=== PATIENT | male | born 1960 | race Caucasian/White ===

== ENCOUNTER 2017-01-10 08:24 | Emergency (ER) | payer SELFPAY ==
[2017-01-10 08:40] VITALS: TEMP 96.4
[2017-01-10] MEDS ORDERED: predniSONE 20 MG TAB PO ONE (08:44)
[2017-01-10] MEDS ORDERED: methylPREDNISolone SODIUM SUC 125 MG/2 ML VIAL IM ONE (08:44)
--- NOTE | 2017-01-10 08:48 | ED.PDOC ---
History of Present Illness - General Chief Complaint: Allergic Reaction Stated Complaint: facial swelling Time Seen by Provider: 01/10/17 08:33 Source: patient, family Exam Limitations: no limitations - History of Present Illness Initial Comments: the patient is a 56-year-old male presenting to the emergency room secondary to rash to his left upper extremity and left side of his face starting approximately 5 days ago after he was digging around in the yard. He reports that some dirt splashed up on his face and his arm and since then he has had itching along with erythema and swelling. He has had some small weeping lesions as well in that distribution. They do itch. No difficulty with breathing. No obvious abscess. Severity: moderate Improving Factors: nothing Worsening Factors: nothing Associated Symptoms: denies symptoms Allergies/Adverse Reactions: Allergies Erythromycin Allergy (Verified 01/10/17 08:39) Home Medications: Ambulatory Orders Amlodipine Besylate 5 mg PO DAILY 01/10/17 HYDROcodone 10MG/APAP 325MG [[place] 10/325] 1 ea PO PRN 01/10/17 Lisinopril 20 mg PO BID 01/10/17 Sulfamethoxazole-Trimethoprim [Bactrim Ds 800-160 mg] 1 tab PO DAILY #3 tab predniSONE [Prednisone] 20 mg PO DAILY #5 tab 01/10/17 Review of Systems - Review of Systems Constitutional: States: no symptoms reported EENTM: States: no symptoms reported Respiratory: States: no symptoms reported Cardiology: States: no symptoms reported Gastrointestinal/Abdominal: States: no symptoms reported Genitourinary: States: no symptoms reported Musculoskeletal: States: no symptoms reported Skin: States: see HPI Neurological: States: no symptoms reported Endocrine: States: no symptoms reported All other Systems: No Change from Baseline Past Medical History (General) - Patient Medical History Hx Seizures: No Hx Stroke: No Hx Dementia: No Hx Asthma: No Hx of COPD: Yes Hx Cardiac Disorders: No Hx Congestive Heart Failure: No Hx Pacemaker: No Hx Hypertension: Yes Hx Thyroid Disease: No Hx Diabetes: Yes Hx Renal Disease: No Hx Cancer: No Hx of HIV: No Hx Hepatitis C: No Hx MRSA: No Surgical History: cholecystectomy - Vaccination History Hx Tetanus, Diphtheria Vaccination: Yes Hx Influenza Vaccination: No Hx Pneumococcal Vaccination: No - Social History Hx Tobacco Use: Yes Hx Alcohol Use: Yes Hx Substance Use: No Hx Substance Use Treatment: No Hx Depression: Yes Hx Physical Abuse: No Hx Emotional Abuse: No Hx Suspected Abuse: No - Activities of Daily Living Hospice Agency (if applicable):: None - Female History Patient is a Female of Child Bearing Age (10 -59 yrs old): No Patient : No Family Medical History - Family History Mother Living Status: Cause of : COPD/Emphysema Hx Cardiac Disease: Yes Hx Family Diabetes: Yes Father Living Status: Cause of : prosatae cancer Hx Family Cancer: Yes - Prostate Physical Exam - Physical Exam General Appearance: Alert, Comfortable, No apparent distress Eye Exam: bilateral normal Ears, Nose, Throat: hearing grossly normal, normal ENT inspection, normal pharynx Neck: non-tender, full range of motion, supple Respiratory: chest non-tender, lungs clear, normal breath sounds, no respiratory distress, no accessory muscle use Cardiovascular/Chest: normal peripheral pulses, regular rate, rhythm, no edema Peripheral Pulses: radial,right: 2+, radial,left: 2+, dorsalis pedis,right: 2+, dorsalis pedis,left: 2+ Gastrointestinal/Abdominal: non tender Rectal Exam: deferred Back Exam: normal inspection Extremity: normal range of motion, no pedal edema, no calf tenderness, normal capillary refill Neurologic: alert, normal mood/affect, oriented x 3 Skin Exam: other - erythema to the left upper extremity and left side of the face with small excoriated areas that appear to have been weeping at some point. Possibly may have been some small blisters in the area that have broken. No blisters currently. He does have a small amount of periorbital edema. Extraocular movements are preserved. Comments: Vital Signs - 24 hr 01/10/17 08:30 Temperature 96.4 F L Pulse Rate [ 84 pulse ox] Respiratory 20 Rate Blood Pressure 151/96 [pulse ox] O2 Sat by Pulse 97 Oximetry Progress - Progress Progress: 01/10/17 08:50 the patient is a 56-year-old male presenting due to an allergic reaction to an unknown stimulus in the form of a contact dermatitis. It is possibly poison oak or poison pradeep. Exposure was 5 days ago. I do not believe that there is any superimposed infection at this time however we will place the patient on Bactrim daily for 3 days to make sure he does not develop one. He has received a dose of steroids here today and will be placed on prednisone daily for the next 5 days at 20 mg. He needs to follow-up with his primary care doctor before the weekend. ER warnings were given for any acute worsening. He can continue to take Zyrtec 10 mg twice daily for the next few days as well. family has taken pictures for comparison for evaluation of treatment efficacy. No evidence of airway involvement at this time. Departure - Departure Clinical Impression: Contact dermatitis and eczema due to plant Condition: Fair Departure Forms: ED Discharge - Pt. Copy, Patient Portal Self Enrollment Instructions: DI for Contact Dermatitis Diet: regular diet Activity: increase activity as tolerated Referrals: Mathieu Mehta MD [Primary Care Provider] - 1-5 Days Prescriptions: Sulfamethoxazole-Trimethoprim [Bactrim Ds 800-160 mg] 1 tab PO DAILY #3 tab predniSONE [Prednisone] 20 mg PO DAILY #5 tab Home Medications: Ambulatory Orders Amlodipine Besylate 5 mg PO DAILY 01/10/17 HYDROcodone 10MG/APAP 325MG [[place] 10/325] 1 ea PO PRN 01/10/17 Lisinopril 20 mg PO BID 01/10/17 Sulfamethoxazole-Trimethoprim [Bactrim Ds 800-160 mg] 1 tab PO DAILY #3 tab predniSONE [Prednisone] 20 mg PO DAILY #5 tab 01/10/17 Comments: the patient is a 56-year-old male presenting due to an allergic reaction to an unknown stimulus in the form of a contact dermatitis. It is possibly poison oak or poison pradeep. Exposure was 5 days ago. I do not believe that there is any superimposed infection at this time however we will place the patient on Bactrim daily for 3 days to make sure he does not develop one. He has received a dose of steroids here today and will be placed on prednisone daily for the next 5 days at 20 mg. He needs to follow-up with his primary care doctor before the weekend. ER warnings were given for any acute worsening. He can continue to take Zyrtec 10 mg twice daily for the next few days as well. family has taken pictures for comparison for evaluation of treatment efficacy. No evidence of airway involvement at this time.
[2017-01-10 09:48] VITALS: BP 135/88; O2SAT 98
== END 2017-01-10 09:47 | disposition home or self-care (01) ==
LOC: ER 08:24
DX: L23.7 Allergic contact dermatitis due to plants, except food (principal); J44.9 Chronic obstructive pulmonary disease, unspecified; I10 Essential (primary) hypertension; E11.9 Type 2 diabetes mellitus without complications; Z88.3 Allergy status to other anti-infective agents; Z79.899 Other long term (current) drug therapy; Z87.891 Personal history of nicotine dependence
CPT/HCPCS: J2930; J7512

== ENCOUNTER 2017-01-15 09:22 | Emergency (ER) | payer SELFPAY ==
[2017-01-15 10:04] VITALS: TEMP 97.9
[2017-01-15 10:11] VITALS: BP 117/65; O2SAT 98
--- NOTE | 2017-01-15 10:44 | ED.PDOC ---
History of Present Illness - General Chief Complaint: Skin/Abrasion/Tear Time Seen by Provider: 01/15/17 09:29 Source: patient Exam Limitations: no limitations - History of Present Illness Initial Comments: the patient is a 56-year-old male with no recent travel history presenting to the emergency room for the second time in the last week secondary to a pruritic rash with excoriations to the left upper extremity as well as a few lesions to the face, the right upper extremity as well as a few lesions to the abdomen and perineum. These lesions are extremely pruritic. Further information gain since his last visit was that he was working around was a form of sumac and from the description and an Internet search it appears that this form of sumac was likely poisonous form giving a reaction consistent with poison pradeep or poison oak. The patient actually did not finish his course of prednisone as he was afraid that it was causing a rash. Since stopping the prednisone the itching has become more significant. He has been putting calamine lotion on it. The swelling seen in the face of the last visit has resolved however. He hasn't does not have any oral lesions not having any respiratory issues. There are no blisters or Desquamation. Timing/Duration: 1 week Severity: moderate Improving Factors: medication Worsening Factors: nothing Associated Symptoms: denies symptoms Allergies/Adverse Reactions: Allergies Erythromycin Allergy (Verified 01/15/17 10:01) Home Medications: Ambulatory Orders Amlodipine Besylate 5 mg PO DAILY 01/10/17 HYDROcodone 10MG/APAP 325MG [[place] 10/325] 1 ea PO PRN 01/10/17 Lisinopril 20 mg PO BID 01/10/17 Hydroxyzine HCl 25 mg PO Q4H PRN #30 tab 01/15/17 glipiZIDE [Glucotrol] 5 mg PO DAILY #20 tab 01/15/17 predniSONE [Prednisone] 20 mg PO DAILY #5 tab 01/15/17 Review of Systems - Review of Systems Constitutional: States: no symptoms reported EENTM: States: no symptoms reported Respiratory: States: no symptoms reported Cardiology: States: no symptoms reported Gastrointestinal/Abdominal: States: no symptoms reported Genitourinary: States: no symptoms reported Musculoskeletal: States: no symptoms reported Skin: States: see HPI Neurological: States: no symptoms reported Endocrine: States: no symptoms reported All other Systems: No Change from Baseline Past Medical History (General) - Patient Medical History Hx Seizures: No Hx Stroke: No Hx Dementia: No Hx Asthma: No Hx of COPD: Yes Hx Cardiac Disorders: No Hx Congestive Heart Failure: No Hx Pacemaker: No Hx Hypertension: Yes Hx Thyroid Disease: No Hx Diabetes: No Hx Renal Disease: No Hx Cancer: No Hx of HIV: No Hx Hepatitis C: No Hx MRSA: No - Vaccination History Hx Tetanus, Diphtheria Vaccination: Yes Hx Influenza Vaccination: No Hx Pneumococcal Vaccination: No - Social History Hx Tobacco Use: Yes Hx Alcohol Use: Yes Hx Substance Use: No Hx Substance Use Treatment: No Hx Depression: Yes Hx Physical Abuse: No Hx Emotional Abuse: No Hx Suspected Abuse: No - Female History Patient : No Family Medical History - Family History Mother Living Status: Cause of : COPD/Emphysema Hx Cardiac Disease: Yes Hx Family Diabetes: Yes Father Living Status: Cause of : prosatate cancer Hx Family Cancer: Yes - Prostate Physical Exam - Physical Exam General Appearance: Alert, Comfortable, No apparent distress Eye Exam: bilateral normal Ears, Nose, Throat: normal ENT inspection, normal pharynx Neck: full range of motion, supple, normal inspection Respiratory: chest non-tender, lungs clear, normal breath sounds, no respiratory distress, no accessory muscle use Cardiovascular/Chest: normal peripheral pulses, regular rate, rhythm, no edema Peripheral Pulses: radial,right: 2+, radial,left: 2+ Gastrointestinal/Abdominal: non tender, soft Rectal Exam: deferred Back Exam: normal inspection - with the exception of a few skin lesions Extremity: normal range of motion, non-tender, normal inspection, no pedal edema , normal capillary refill Neurologic: alert, normal mood/affect, oriented x 3 Skin Exam: normal color - with the exception of the skin lesions as described above. Lymphatic: no adenopathy Comments: Vital Signs - 24 hr 01/15/17 01/15/17 09:53 10:10 Temperature 97.9 F Pulse Rate [ 94 H 67 Right Radial] Respiratory 20 18 Rate Blood Pressure 138/102 117/65 [Right Arm] O2 Sat by Pulse 97 98 Oximetry Progress - Progress Progress: 01/15/17 10:46 the patient is a 56-year-old male presenting to the emergency room secondary to persistent rash to the extremities, torso, face and perineum. This is consistent with contact dermatitis cause from sumac. The patient can apply a thin layer of Aquaphor to all affected areas 2-3 times daily to help reduce irritation. He will also be placed back on prednisone for the next 5 days. He will be written for hydroxyzine for the itching. Blood sugars are elevated today even though he has been off of the prednisone for a few days. I' m going to start the patient on low-dose glipizide in the morning. He needs to follow-up with his primary care doctor for formal evaluation of his hyperglycemia. Certainly the steroid is not going to help his blood sugars in the short-term however it is quite necessary for control of symptoms at this time. He needs to follow up with his primary care doctor early next week. Return to the emergency room for any acute worsening. 01/15/17 10:49 - Results/Orders Results/Orders: Laboratory Tests 01/15/17 09:59 WBC 7.1 RBC 5.90 Hgb 17.3 Hct 50.6 MCV 85.8 MCH 29.3 MCHC 34.2 RDW 13.6 Plt Count 195 MPV 8.2 Absolute Neuts (auto) 3.60 Absolute Lymphs (auto) 2.10 Absolute Monos (auto) 0.60 Absolute Eos (auto) 0.60 H Absolute Basos (auto) 0.10 Neutrophils % 51.3 Lymphocytes % 30.3 Monocytes % 9.1 H Eosinophils % 8.5 H Basophils % 0.8 Sodium 133 L Potassium 4.6 Chloride 98 L Carbon Dioxide 25 Anion Gap 14.6 BUN 23 H Creatinine 0.87 BUN/Creatinine Ratio 26.4 H Random Glucose 309 H Serum Osmolality 281.8 Calcium 9.6 Total Bilirubin 1.0 AST 24 ALT 38 Alkaline Phosphatase 49 LD Total 124 Serum Total Protein 7.7 Albumin 4.6 Globulin 3.1 Albumin/Globulin Ratio 1.5 Departure - Departure Clinical Impression: Allergic dermatitis due to poison sumac, Hyperglycemia Disposition: Discharge to Home or Self Care Condition: Fair Departure Forms: ED Discharge - Pt. Copy, Patient Portal Self Enrollment Instructions: DI for Contact Dermatitis Diet: diabetic diet Activity: increase activity as tolerated Referrals: Mathieu Mehta MD [Primary Care Provider] - 1-2 Weeks Prescriptions: glipiZIDE [Glucotrol] 5 mg PO DAILY #20 tab Hydroxyzine HCl 25 mg PO Q4H PRN #30 tab PRN Reason: Allergies predniSONE [Prednisone] 20 mg PO DAILY #5 tab Home Medications: Ambulatory Orders Amlodipine Besylate 5 mg PO DAILY 01/10/17 HYDROcodone 10MG/APAP 325MG [[place] 10325] 1 ea PO PRN 01/10/17 Lisinopril 20 mg PO BID 01/10/17 Hydroxyzine HCl 25 mg PO Q4H PRN #30 tab 01/15/17 glipiZIDE [Glucotrol] 5 mg PO DAILY #20 tab 01/15/17 predniSONE [Prednisone] 20 mg PO DAILY #5 tab 01/15/17 Additional Instructions: the patient is a 56-year-old male presenting to the emergency room secondary to persistent rash to the extremities, torso, face and perineum. This is consistent with contact dermatitis cause from sumac. The patient can apply a thin layer of Aquaphor to all affected areas 2-3 times daily to help reduce irritation. He will also be placed back on prednisone for the next 5 days. He will be written for hydroxyzine for the itching. Blood sugars are elevated today even though he has been off of the prednisone for a few days. I' m going to start the patient on low-dose glipizide in the morning. He needs to follow-up with his primary care doctor for formal evaluation of his hyperglycemia. Certainly the steroid is not going to help his blood sugars in the short-term however it is quite necessary for control of symptoms at this time. He needs to follow up with his primary care doctor early next week. Return to the emergency room for any acute worsening.
== END 2017-01-15 10:57 | disposition home or self-care (01) ==
LOC: ER 09:22
DX: L23.7 Allergic contact dermatitis due to plants, except food (principal); J44.9 Chronic obstructive pulmonary disease, unspecified; I10 Essential (primary) hypertension; Z79.899 Other long term (current) drug therapy; Z88.3 Allergy status to other anti-infective agents

== ENCOUNTER 2017-01-18 10:25 | Emergency (ER) | payer SELFPAY ==
[2017-01-18 10:44] VITALS: TEMP 98.3
[2017-01-18] MEDS ORDERED: ONDANSETRON ODT 8 MG TAB SL ONE (11:19)
--- NOTE | 2017-01-18 11:22 | ED.PDOC ---
History of Present Illness - General Chief Complaint: Diabetic Complaint Stated Complaint: nausea, increased glucose Time Seen by Provider: 01/18/17 11:18 Source: patient, family Exam Limitations: no limitations - History of Present Illness Initial Comments: PT REPORTS NAUSEA, GENERALIZED MALAISE, AND ELEVATED BLOOD GLUCOSE FOR THE PAST SEVERAL DAYS SINCE BEING PLACED ON STEROIDS FOR A RASH THAT WAS PRESUMED TO BE CAUSED BY POISON [place]AK. PT REPORTS RELATIVE WORSENING OF THE RASH AND STATES THAT IT SEEMS TO BE SPREADING ALL OVER HIS BODY. Timing/Duration: 1 week, getting worse Improving Factors: other - HOT SHOWERS Worsening Factors: other - ITCHING FROM RASH IS WORSE AT NIGHT Associated Symptoms: loss of appetite, malaise, nausea/vomiting Allergies/Adverse Reactions: Allergies Erythromycin Allergy (Verified 01/18/17 10:50) Home Medications: Ambulatory Orders Amlodipine Besylate 5 mg PO DAILY 01/10/17 HYDROcodone 10MG/APAP 325MG [[place] 10/325] 1 ea PO PRN 01/10/17 Lisinopril 20 mg PO BID 01/10/17 Hydroxyzine HCl 25 mg PO Q4H PRN #30 tab 01/15/17 glipiZIDE [Glucotrol] 5 mg PO DAILY #20 tab 01/15/17 predniSONE [Prednisone] 20 mg PO DAILY #5 tab 01/15/17 Mometasone Furoate 0.1 % TOP BID #90 lauro 01/18/17 Ondansetron [Zofran Odt] 8 mg PO TID PRN #15 tab 01/18/17 Permethrin [Elimite] 1 applic TOP ONCE #60 cre 01/18/17 Review of Systems - Review of Systems Constitutional: States: malaise, weakness. Denies: fever EENTM: Denies: blurred vision, nose congestion, throat swelling Respiratory: Denies: cough, short of breath Cardiology: Denies: chest pain, palpitations Gastrointestinal/Abdominal: States: diarrhea, nausea. Denies: abdominal pain Skin: States: see HPI, lesions, rash Neurological: Denies: no symptoms reported Endocrine: States: no symptoms reported Past Medical History (General) - Patient Medical History Hx Seizures: No Hx Stroke: No Hx Dementia: No Hx Asthma: No Hx of COPD: Yes Hx Cardiac Disorders: No Hx Congestive Heart Failure: No Hx Pacemaker: No Hx Hypertension: Yes Hx Thyroid Disease: No Hx Diabetes: Yes Hx Renal Disease: No Hx Cancer: No Hx of HIV: No Hx Hepatitis C: No Hx MRSA: No - Vaccination History Hx Tetanus, Diphtheria Vaccination: Yes Hx Influenza Vaccination: No Hx Pneumococcal Vaccination: No - Social History Hx Tobacco Use: Yes Hx Alcohol Use: Yes Hx Substance Use: No Hx Substance Use Treatment: No Hx Depression: Yes Hx Physical Abuse: No Hx Emotional Abuse: No Hx Suspected Abuse: No - Activities of Daily Living Hospice Agency (if applicable):: None - Female History Patient is a Female of Child Bearing Age (10 -59 yrs old): No Patient : No Family Medical History - Family History Mother Living Status: Cause of : COPD/Emphysema Hx Cardiac Disease: Yes Hx Family Diabetes: Yes Father Living Status: Cause of : prosatate cancer Hx Family Cancer: Yes - Prostate Physical Exam - Physical Exam General Appearance: Alert, Obvious distress Eye Exam: bilateral normal Ears, Nose, Throat: hearing grossly normal, normal ENT inspection Neck: non-tender, full range of motion Respiratory: chest non-tender, lungs clear, normal breath sounds Cardiovascular/Chest: regular rate, rhythm, no murmur Gastrointestinal/Abdominal: non tender, soft Back Exam: normal inspection Extremity: non-tender, normal inspection Neurologic: alert, normal mood/affect, oriented x 3 Skin Exam: normal color, warm/dry, rash - MULTIPLE ERTHEMATOUS PAPULAR LESIONS, SOME IN A LINEAR FORMATION, WITH OVERLYING EXCORIATED SKIN. RASH IS LOCATED ON BILATERAL ARMS, ABDOMEN, BILATERAL GROIN AND IN WEB SPACES BETWEEN FINGERS. Progress - Progress Progress: 01/18/17 11:27 56 YEAR OLD MALE WHO PRESENTS TO ED FOR THE 3RD TIME FOR SYMPTOMS SECONDARY TO RASH THAT WAS PRESUMED TO BE CAUSED BY POISON [place]. I WILL TREAT PT FOR SCABIES SINCE THIS RASH DOES EXHIBIT SOME OF THE CHARACTERISTIC FINDINGS FOR SCABIES. WILL RECOMMEND 1000MG METFORMIN BID FOR ELEVATED BLOOD GLUCOSE. RECOMMEND FOLLOW UP WITH DR. HARRISON FOR MONITORING OF BLOOD GLUCOSE LEVELS. - Results/Orders Results/Orders: 01/18/17 11:18 FSBS [GLUCOSE, FINGER STICK] Stat Departure - Departure Clinical Impression: Hyperglycemia, Scabies infestation, Nausea, Diarrhea, Medication side effects Disposition: Discharge to Home or Self Care Condition: Fair Departure Forms: ED Discharge - Pt. Copy, Patient Portal Self Enrollment Instructions: DI for Scabies, Glyburide and Metformin, Permethrin Topical Diet: diabetic diet Prescriptions: Permethrin [Elimite] 1 applic TOP ONCE #60 cre Mometasone Furoate 0.1 % TOP BID #90 lauro Ondansetron [Zofran Odt] 8 mg PO TID PRN #15 tab PRN Reason: Nausea/Vomiting Home Medications: Ambulatory Orders Amlodipine Besylate 5 mg PO DAILY 01/10/17 HYDROcodone 10MG/APAP 325MG [[place] 10/325] 1 ea PO PRN 01/10/17 Lisinopril 20 mg PO BID 01/10/17 Hydroxyzine HCl 25 mg PO Q4H PRN #30 tab 01/15/17 glipiZIDE [Glucotrol] 5 mg PO DAILY #20 tab 01/15/17 predniSONE [Prednisone] 20 mg PO DAILY #5 tab 01/15/17 Mometasone Furoate 0.1 % TOP BID #90 lauro 01/18/17 Ondansetron [Zofran Odt] 8 mg PO TID PRN #15 tab 01/18/17 Permethrin [Elimite] 1 applic TOP ONCE #60 cre 01/18/17
[2017-01-18 12:18] VITALS: BP 131/71; O2SAT 96
== END 2017-01-18 12:15 | disposition home or self-care (01) ==
LOC: ER 10:25
DX: E11.65 Type 2 diabetes mellitus with hyperglycemia (principal); B86 Scabies; R11.0 Nausea; R19.7 Diarrhea, unspecified; T50.905A Adverse effect of unspecified drugs, medicaments and biological substances, initial encounter; J44.9 Chronic obstructive pulmonary disease, unspecified; I10 Essential (primary) hypertension; Z88.3 Allergy status to other anti-infective agents; Z79.899 Other long term (current) drug therapy

== ENCOUNTER 2017-06-13 19:52 | Emergency (ER) | payer SELFPAY ==
[2017-06-13 20:05] VITALS: TEMP 97.9
[2017-06-13] MEDS ORDERED: NITROGLYCERIN 0.4 MG 25 EA TAB SL ONE (20:11)
[2017-06-13] MEDS ORDERED: ASPIRIN (CHEWABLE) 81 MG TAB PO ONE (20:11)
--- NOTE | 2017-06-13 20:15 | ED.PDOC ---
History of Present Illness - General Chief Complaint: Respiratory Problem Stated Complaint: shortness of breath, weakness Time Seen by Provider: 06/13/17 20:10 Source: patient, RN notes reviewed, Vital Signs reviewed Exam Limitations: no limitations - History of Present Illness Initial Comments: Patient comes in via private vehicle with c/o shortness of breath all day. + chest pain, burning in nature and on the L side of his chest. + Nausea. + back pain. ? diaphoresis as he was working outside all day. He has not been taking his BP medications like he should. Only taking Lisinopril prn and has been out of his Amlodipine. He has been having issues with SOB over the past several weeks. He took an Albuterol treatment today w/o improvement and says it made him feel like he was going to pass out. Took Hydrocodone for his back pain w/o improvement. Timing/Duration: 7-24 hours Severity: severe Activities at Onset: activity Possible Cause: frequent episodes - More ffrequent recently Improving Factors: nothing Worsening Factors: nothing Associated Symptoms: chest pain, pain - back pain, wheezing Respiratory Risk Factors: no cause identified Allergies/Adverse Reactions: Allergies Erythromycin Allergy (Verified 01/18/17 10:50) Home Medications: Ambulatory Orders Amlodipine Besylate 5 mg PO DAILY 01/10/17 HYDROcodone 10MG/APAP 325MG [[place] 10/325] 1 ea PO PRN 01/10/17 Lisinopril 20 mg PO BID 01/10/17 predniSONE [Prednisone] 20 mg PO DAILY #5 tab 01/15/17 Amlodipine Besylate 5 mg PO DAILY #30 tab 06/13/17 Metformin HCl 06/13/17 Review of Systems - Review of Systems Constitutional: States: malaise, weakness. Denies: chills, fever EENTM: States: no symptoms reported Respiratory: States: see HPI, short of breath, wheezing. Denies: cough Cardiology: States: chest pain. Denies: edema, palpitations, syncope Gastrointestinal/Abdominal: States: nausea. Denies: abdominal pain, diarrhea, vomiting Musculoskeletal: States: back pain Skin: States: no symptoms reported Neurological: States: no symptoms reported All other Systems: No Change from Baseline Past Medical History (General) - Patient Medical History Hx Seizures: No Hx Stroke: No Hx Dementia: No Hx Asthma: No Hx of COPD: Yes Hx Cardiac Disorders: No Hx Congestive Heart Failure: No Hx Pacemaker: No Hx Hypertension: Yes Hx Thyroid Disease: No Hx Diabetes: Yes Hx Renal Disease: No Hx Cancer: No Hx of HIV: No Hx Hepatitis C: No Hx MRSA: No Surgical History: cholecystectomy - Vaccination History Hx Tetanus, Diphtheria Vaccination: Yes Hx Influenza Vaccination: No Hx Pneumococcal Vaccination: No - Social History Hx Tobacco Use: Yes Hx Alcohol Use: Yes Hx Substance Use: No Hx Substance Use Treatment: No Hx Depression: Yes Hx Physical Abuse: No Hx Emotional Abuse: No Hx Suspected Abuse: No - Female History Patient : No - Triage Comment ED Triage Comment: Elevated blood pressure at home, been out of amlodipine. Took other BP med Family Medical History - Family History Mother Living Status: Cause of : COPD/Emphysema Hx Cardiac Disease: Yes Hx Family Diabetes: Yes Father Living Status: Cause of : prosatate cancer Hx Family Cancer: Yes - Prostate Physical Exam - Physical Exam General Appearance: Anxious, Ill Appearing, Well Developed, Well Groomed, Well Hydrated, Well Nourished Neck: non-tender, supple, normal inspection Respiratory: chest non-tender, lungs clear, normal breath sounds, no respiratory distress, no accessory muscle use Cardiovascular/Chest: normal peripheral pulses, regular rate, rhythm, no edema, no gallop, no JVD, no murmur Peripheral Pulses: dorsalis pedis,right: 2+, dorsalis pedis,left: 2+ Gastrointestinal/Abdominal: normal bowel sounds, soft, no organomegaly, no pulsatile mass, tenderness Extremity: normal inspection, no pedal edema Neurologic: alert, oriented x 3, depressed affect Skin Exam: normal color, warm/dry Comments: Vital Signs - 8 hr 06/13/17 20:01 Temperature 97.9 F Pulse Rate [ 88 Right] Respiratory 20 Rate Blood Pressure 160/101 [left] O2 Sat by Pulse 98 Oximetry Progress - Progress Progress: 06/13/17 20:28 After 1 SLNTG burning in chest is gone but c/o severe PHILLIPS. BP 162/99. Reports back pain is the same but it is chronic. 06/13/17 21:04 Patient reports he is feeling better and would like to just go home. Discussed his normal labs, EKG and CXR. ? if SOB is due to anxiety. He does report he has been under a lot of extra stress lately. Will give Amlodipine since his BP is still elevated. 06/13/17 21:35 BP is 138/91. Patient would like to go home - Results/Orders Results/Orders: Laboratory Tests 06/13/17 06/13/17 06/13/17 20:11 20:11 20:11 WBC 6.2 RBC 5.25 Hgb 15.3 Hct 44.5 MCV 84.7 MCH 29.1 MCHC 34.4 RDW 13.0 Plt Count 167 MPV 7.9 Absolute Neuts (auto) 3.50 Absolute Lymphs (auto) 2.00 Absolute Monos (auto) 0.40 Absolute Eos (auto) 0.20 Absolute Basos (auto) 0.10 Neutrophils % 56.6 Lymphocytes % 31.9 Monocytes % 7.2 Eosinophils % 3.4 Basophils % 0.9 D-Dimer, Quantitative < 200 Sodium 137 Potassium 3.9 Chloride 103 Carbon Dioxide 25 Anion Gap 12.9 BUN 17 Creatinine 0.84 BUN/Creatinine Ratio 20.2 H Random Glucose 219 H Serum Osmolality 282.1 Calcium 9.4 Total Bilirubin 0.4 AST 22 ALT 32 Alkaline Phosphatase 45 Creatine Kinase 182 H CK-MB (CK-2) 4.3 CK-MB (CK-2) % 2.36 Troponin I < 0.02 B-Natriuretic Peptide 37.7 Serum Total Protein 6.9 Albumin 4.4 Globulin 2.5 Albumin/Globulin Ratio 1.8 - EKG/XRAY/CT EKG: Sinus, nonspecific ST T wave Chg Comments: Rate 78 XRAY: chest - No acute findings per Radiologist Departure - Departure Clinical Impression: Shortness of breath, Stress and adjustment reaction Hypertension Qualifiers: Hypertension type: essential hypertension Qualified Code(s): I10 - Essential ( primary) hypertension Time of Disposition: 21:36 Disposition: Discharge to Home or Self Care Condition: Good Departure Forms: ED Discharge - Pt. Copy, Patient Portal Self Enrollment Instructions: High Blood Pressure, DI for Shortness of Breath Diet: resume usual diet Activity: increase activity as tolerated Referrals: Mathieu Mehta MD [Primary Care Provider] - 1-2 Weeks Prescriptions: Amlodipine Besylate 5 mg PO DAILY #30 tab Home Medications: Ambulatory Orders Amlodipine Besylate 5 mg PO DAILY 01/10/17 HYDROcodone 10MG/APAP 325MG [[place] 10/325] 1 ea PO PRN 01/10/17 Lisinopril 20 mg PO BID 01/10/17 predniSONE [Prednisone] 20 mg PO DAILY #5 tab 01/15/17 Amlodipine Besylate 5 mg PO DAILY #30 tab 06/13/17 Metformin HCl 06/13/17
[2017-06-13] MEDS ORDERED: MORPHINE SULFATE INJ 10 MG/ML VIAL IV ONE (20:29)
--- NOTE | 2017-06-13 20:47 | RAD ---
EXAM DESCRIPTION: Chest,1 View CLINICAL HISTORY: 56 years Male SOB COMPARISON: 04/12/2015 FINDINGS: The cardiomediastinal silhouette appears unremarkable. No consolidating infiltrates or pleural effusions. No pneumothorax. IMPRESSION: No interval change Electronically signed by: Jannie Muñoz 06/13/2017 8:46 PM CDT
[2017-06-13] MEDS ORDERED: amLODIPine BESYLATE 5 MG TAB PO ONE (21:04)
[2017-06-13 21:54] VITALS: BP 144/90; O2SAT 97
== END 2017-06-13 21:55 | disposition home or self-care (01) ==
LOC: ER 19:52
DX: R06.02 Shortness of breath (principal); I10 Essential (primary) hypertension; F43.8 Other reactions to severe stress; J44.9 Chronic obstructive pulmonary disease, unspecified; E11.9 Type 2 diabetes mellitus without complications; Z79.899 Other long term (current) drug therapy; Z88.3 Allergy status to other anti-infective agents; Z87.891 Personal history of nicotine dependence; Z80.42 Family history of malignant neoplasm of prostate
CPT/HCPCS: 36415; 71010; 80053; 82550; 82553; 83880; 84484; 85025; 85379; 93005; J2270

== ENCOUNTER 2017-07-05 22:49 | Emergency (ER) | payer SELFPAY ==
[2017-07-05 23:01] VITALS: TEMP 97.6
[2017-07-05] MEDS ORDERED: INSULIN, REG.(HUMAN) 100 U/ML VIAL IV ONE (23:15)
[2017-07-05] MEDS ORDERED: SODIUM CHLORIDE 0.9% 1000ML 1,000 ML IVS ONE (23:15)
--- NOTE | 2017-07-05 23:19 | ED.PDOC ---
History of Present Illness - General Chief Complaint: Diabetic Complaint Stated Complaint: high blood sugar Time Seen by Provider: 07/05/17 22:50 Source: patient, RN notes reviewed, Vital Signs reviewed Exam Limitations: no limitations - History of Present Illness Initial Comments: Patient comes in with c/o elevated blood sugar. BS at home was 581. He has been out of his Metformin for a month. Reports yesterday he got over heated, passed out and then sat in the shower until he got cold. Timing/Duration: unsure Severity: moderate Improving Factors: nothing Worsening Factors: nothing Associated Symptoms: malaise, nausea/vomiting, weakness Allergies/Adverse Reactions: Allergies Erythromycin Allergy (Verified 07/05/17 23:01) Home Medications: Ambulatory Orders Amlodipine Besylate 5 mg PO DAILY 01/10/17 HYDROcodone 10MG/APAP 325MG [[place] 10/325] 1 ea PO PRN 01/10/17 Metformin HCl 1,000 mg PO BID 06/13/17 Lisinopril & Hydrochlorothiazi [Lisinopril/Hctz 20-25 mg] 1 tab PO DAILY Metformin HCl 1,000 mg PO BID #60 tab 07/06/17 Review of Systems - Review of Systems Constitutional: States: malaise EENTM: States: blurred vision Respiratory: States: wheezing Cardiology: States: no symptoms reported Gastrointestinal/Abdominal: States: nausea, vomiting. Denies: abdominal pain Musculoskeletal: States: no symptoms reported Skin: States: no symptoms reported Neurological: States: paresthesia - bilateral feet Endocrine: States: increased thirst, increased urine All other Systems: No Change from Baseline Past Medical History (General) - Patient Medical History Hx Seizures: No Hx Stroke: No Hx Dementia: No Hx Asthma: No Hx of COPD: Yes Hx Cardiac Disorders: No Hx Congestive Heart Failure: No Hx Pacemaker: No Hx Hypertension: Yes Hx Thyroid Disease: No Hx Diabetes: Yes Hx Gastroesophageal Reflux: Yes Hx Renal Disease: No Hx Cancer: No Hx of HIV: No Hx Hepatitis C: No Hx MRSA: No Surgical History: cholecystectomy - Vaccination History Hx Tetanus, Diphtheria Vaccination: Yes Hx Influenza Vaccination: No Hx Pneumococcal Vaccination: No Immunizations Up to Date: Yes - Social History Hx Tobacco Use: Yes Hx Chewing Tobacco Use: No Hx Alcohol Use: Yes - social Hx Substance Use: No Hx Substance Use Treatment: No Hx Depression: Yes Feels Threatened In Home Enviroment: No Feels Threatened In a Relationship: No Hx Physical Abuse: No Hx Emotional Abuse: No Hx Suspected Abuse: No - Female History Patient : No Family Medical History - Family History Mother Living Status: Cause of : COPD/Emphysema Hx Cardiac Disease: Yes Hx Family Diabetes: Yes Father Living Status: Cause of : prosatate cancer Hx Family Cancer: Yes - Prostate Physical Exam - Physical Exam General Appearance: Alert, No apparent distress, Ill Appearing, Well Developed, Well Groomed, Well Nourished Neck: non-tender, full range of motion, supple, normal inspection Respiratory: no respiratory distress, no accessory muscle use, wheezing - Through out Cardiovascular/Chest: regular rate, rhythm, no edema, no gallop, no murmur Gastrointestinal/Abdominal: normal bowel sounds, soft, no organomegaly, no pulsatile mass, tenderness - generalized - chronic with no acute change Neurologic: alert, normal mood/affect, oriented x 3 Skin Exam: normal color, warm/dry Comments: Vital Signs 07/05/17 22:57 Temperature 97.6 F Pulse Rate [ 89 monitor] Respiratory 18 Rate Blood Pressure 125/71 [Right Arm] O2 Sat by Pulse 96 Oximetry Progress - Progress Progress: 07/06/17 00:15 Patient is feeling better except for muscle cramping in his legs. He has been having cramping and has been drinking pickle juice to help with it. Repeat blood sugar is 315. Will give another L of NS due to low sodium and elevated kidney function. Had an extensive discussion about diet and life style changes, the importance of staying on his medication, need for weight loss, stop smoking and stop drinking alcohol. 07/06/17 01:25 Labs improved after 2 L of NS and Insulin but blood sugar is still 343 so will give 8U of reg Insulin SQ and d/c home with Rx for Metformin and follow up with PCP. - Results/Orders Results/Orders: Laboratory Tests 07/05/17 07/05/17 07/05/17 23:00 23:00 23:00 WBC 6.8 RBC 5.10 Hgb 14.9 Hct 44.0 MCV 86.3 MCH 29.2 MCHC 33.8 RDW 13.9 Plt Count 176 MPV 9.1 Absolute Neuts (auto) 4.50 Absolute Lymphs (auto) 1.60 Absolute Monos (auto) 0.40 Absolute Eos (auto) 0.10 Absolute Basos (auto) 0.00 Neutrophils % 67.3 Lymphocytes % 24.3 Monocytes % 6.6 Eosinophils % 1.4 Basophils % 0.4 Sodium 128 L Potassium 4.6 Chloride 93 L Carbon Dioxide 23 Anion Gap 16.6 BUN 30 H Creatinine 1.46 H BUN/Creatinine Ratio 20.5 H POC Glucose > 400 H* Random Glucose 672 H* Serum Osmolality 295.1 H Calcium 9.1 Total Bilirubin 0.7 AST 26 ALT 30 Alkaline Phosphatase 50 Serum Total Protein 6.6 Albumin 4.2 Globulin 2.4 Albumin/Globulin Ratio 1.8 Urine Color Urine Appearance Urine pH Ur Specific [place] Urine Protein Urine Glucose (UA) Urine Ketones Urine Blood Urine Nitrite Urine Bilirubin Urine Urobilinogen Ur Leukocyte Esterase Urine RBC Urine WBC Ur Epithelial Cells Urine Bacteria Serum Ketones Negative 07/05/17 07/06/17 07/06/17 23:25 00:15 01:00 WBC RBC Hgb Hct MCV MCH MCHC RDW Plt Count MPV Absolute Neuts (auto) Absolute Lymphs (auto) Absolute Monos (auto) Absolute Eos (auto) Absolute Basos (auto) Neutrophils % Lymphocytes % Monocytes % Eosinophils % Basophils % Sodium 132 L Potassium 4.3 Chloride 98 L Carbon Dioxide 26 Anion Gap 12.3 BUN 28 H Creatinine 1.31 H BUN/Creatinine Ratio 21.4 H POC Glucose 315 H Random Glucose 343 H D Serum Osmolality 283.6 Calcium 8.8 Total Bilirubin AST ALT Alkaline Phosphatase Serum Total Protein Albumin Globulin Albumin/Globulin Ratio Urine Color Yellow Urine Appearance Clear Urine pH 5.5 Ur Specific [place] 1.010 Urine Protein Negative Urine Glucose (UA) 500 H Urine Ketones Negative Urine Blood Negative Urine Nitrite Negative Urine Bilirubin Negative Urine Urobilinogen 0.2 Ur Leukocyte Esterase Negative Urine RBC 0 Urine WBC 0 Ur Epithelial Cells 0 Urine Bacteria Rare Serum Ketones - EKG/XRAY/CT XRAY: chest - Stable emphysema Departure - Departure Clinical Impression: Hyperglycemia Diabetes mellitus Qualifiers: Diabetes mellitus type: type 2 Diabetes mellitus complication status: with hyperglycemia Diabetes mellitus correction insulin use: without correction use Qualified Code(s): E11.65 - Type 2 diabetes mellitus with hyperglycemia Time of Disposition: Disposition: Discharge to Home or Self Care Condition: Good Departure Forms: ED Discharge - Pt. Copy, Patient Portal Self Enrollment Instructions: Type 2 Diabetes Diet: other - Low carb, plant based, whole food diet Activity: increase activity as tolerated Referrals: Mathieu Mehta MD [Primary Care Provider] - 1-5 Days Prescriptions: Metformin HCl 1,000 mg PO BID #60 tab Home Medications: Ambulatory Orders Amlodipine Besylate 5 mg PO DAILY 01/10/17 HYDROcodone 10MG/APAP 325MG [[place] 10/325] 1 ea PO PRN 01/10/17 Metformin HCl 1,000 mg PO BID 06/13/17 Lisinopril & Hydrochlorothiazi [Lisinopril/Hctz 20-25 mg] 1 tab PO DAILY Metformin HCl 1,000 mg PO BID #60 tab 07/06/17
--- NOTE | 2017-07-05 23:49 | RAD ---
Clinical History : Wheezing/elevated blood sugar , MAIN Exam : PA and lateral views of the chest 07/05/2017 11:15 PM CDT Comparisons : Portable AP view of the chest June 13, 2017 Findings : Stable emphysematous changes are noted throughout the lungs bilaterally. There is flattening of the diaphragms and increased retrosternal clear space. The lungs are clear without focal consolidation or pleural effusion. The heart is normal in size. The mediastinal contours are normal in appearance. The thoracic spine is age appropriate. The shoulders are unremarkable. Limited evaluation of the upper abdomen demonstrates no gross abnormalities. Impression: 1. No acute cardiopulmonary disease. 2. Stable emphysema. Electronically signed by: Santana Weiss MD 07/05/2017 11:47 PM CDT
[2017-07-06] MEDS ORDERED: SODIUM CHLORIDE 0.9% 1000ML 1,000 ML IVS ONE (00:11)
[2017-07-06] MEDS ORDERED: CYCLOBENZAPRINE HCL 5 MG TAB PO ONE (00:15)
[2017-07-06] MEDS ORDERED: INSULIN, REG.(HUMAN) 100 U/ML VIAL SUBCU ONE (01:25)
[2017-07-06 01:36] VITALS: O2SAT 95
[2017-07-06 01:37] VITALS: BP 123/60
== END 2017-07-06 01:37 | disposition home or self-care (01) ==
LOC: ER 22:49
DX: E11.65 Type 2 diabetes mellitus with hyperglycemia (principal); J44.9 Chronic obstructive pulmonary disease, unspecified; I10 Essential (primary) hypertension; K21.9 Gastro-esophageal reflux disease without esophagitis; Z87.891 Personal history of nicotine dependence; Z88.3 Allergy status to other anti-infective agents; Z79.899 Other long term (current) drug therapy
CPT/HCPCS: 36415; 36416; 71020; 80048; 80053; 81001; 82009; 82948; 85025; J7030

== ENCOUNTER → 2017-07-06 | Outpatient (CLI) | payer SELFPAY ==
--- NOTE | 2017-07-07 11:28 | US ---
Study: Arterial doppler sonogram of the left lower extremity arteries. Indication: PVD Technique: Sonographic evaluation of the left lower extremity arteries performed. Findings/impression: No occluded segment of the left lower extremity arteries. Arterial waveforms above the knee are triphasic. Arterial waveforms below the knee within the peroneal, posterior tibial, and dorsalis pedis arteries are monophasic. Elevated peak systolic flow velocity within the posterior tibial artery 137 cm/s indicating a low-grade stenosis. Electronically signed by: Irwin Tovar MD 07/07/2017 11:27 AM CDT
== END ==
LOC: US 13:20
PROVIDERS: ATTEND Family Medicine
DX: I73.9 Peripheral vascular disease, unspecified (principal)

== ENCOUNTER 2017-10-09 07:55 | Emergency (ER) | payer SELFPAY ==
[2017-10-09 08:04] VITALS: TEMP 96.3
--- NOTE | 2017-10-09 08:18 | ED.PDOC ---
History of Present Illness - General Chief Complaint: Lower Extremity Injury Stated Complaint: R foot discomfort Time Seen by Provider: 10/09/17 08:12 Source: patient, RN notes reviewed, Vital Signs reviewed Exam Limitations: no limitations - History of Present Illness Initial Comments: Patient present to the ER with a 3 week history of right heel pain. No injury. Pain is getting worse. He also needs prescriptions for all of his medications. He has medications at home but had a fight with his girlfriend and refuses to go home and get them. Occurred: other - 3 weeks Pain - Lower Extremity: moderate: Right Foot Method of Injury: unknown Improving Factors: rest Worsening Factors: movement Allergies/Adverse Reactions: Allergies Erythromycin Allergy (Verified 10/09/17 08:04) Hives Home Medications: Ambulatory Orders Amlodipine Besylate 5 mg PO DAILY 01/10/17 HYDROcodone 10MG/APAP 325MG [[place] 10/325] 1 ea PO Q4H PRN 01/10/17 Lisinopril & Hydrochlorothiazi [Lisinopril/Hctz 20-25 mg] 1 tab PO DAILY Metformin HCl 1,000 mg PO BID #60 tab 07/06/17 Amlodipine Besylate 5 mg PO DAILY #7 tab 10/09/17 Insulin Glargine [Basaglar Kwikpen] 25 unit SC DAILY 10/09/17 Insulin Glargine [Basaglar Kwikpen] 25 unit SC DAILY #1 inj 10/09/17 Lisinopril & Hydrochlorothiazi [Lisinopril/Hctz 20-25 mg] 1 tab PO DAILY #7 tab 10/09/17 Metformin HCl 1,000 mg PO BID #14 tab 10/09/17 Naproxen [Naprosyn] 500 mg PO BID #40 tab 10/09/17 Review of Systems - Review of Systems Constitutional: States: no symptoms reported Respiratory: States: no symptoms reported Cardiology: States: no symptoms reported Gastrointestinal/Abdominal: States: no symptoms reported Musculoskeletal: States: see HPI Skin: States: no symptoms reported Neurological: States: no symptoms reported All other Systems: No Change from Baseline Past Medical History (General) - Patient Medical History Hx Seizures: No Hx Stroke: No Hx Dementia: No Hx Asthma: No Hx of COPD: Yes Hx Cardiac Disorders: No Hx Congestive Heart Failure: No Hx Pacemaker: No Hx Hypertension: Yes Hx Thyroid Disease: No Hx Diabetes: Yes Hx Gastroesophageal Reflux: Yes Hx Renal Disease: No Hx Cancer: No Hx of HIV: No Hx Hepatitis C: No Hx MRSA: No Surgical History: cholecystectomy - Vaccination History Hx Tetanus, Diphtheria Vaccination: Yes Hx Influenza Vaccination: No Hx Pneumococcal Vaccination: No - unknown - Social History Hx Tobacco Use: Yes Hx Chewing Tobacco Use: No Hx Alcohol Use: Yes - social Hx Substance Use: No Hx Substance Use Treatment: No Hx Depression: Yes Hx Physical Abuse: No Hx Emotional Abuse: No Hx Suspected Abuse: No - Female History Patient : No Family Medical History - Family History Mother Living Status: Cause of : COPD/Emphysema Hx Cardiac Disease: Yes Hx Family Diabetes: Yes Father Living Status: Cause of : prostate cancer Hx Family Cancer: Yes - Prostate Physical Exam - Physical Exam General Appearance: Alert, Comfortable, No apparent distress, Well Developed, Well Groomed, Well Hydrated, Well Nourished Neck: supple Cardiovascular/Respiratory: normal peripheral pulses, no respiratory distress Ankle: normal inspection, non-tender, no evidence of injury, normal ROM Foot: soft tissue tenderness - R heel: tender on bilateral sides and on sole at insertion of plantar fascia. Mild erythema Neuro/Tendon: normal sensation, normal motor functions, normal tendon functions , responds to pain, no evidence tendon injury Mental Status: alert, oriented x 3 Skin: normal color, warm/dry Comments: Vital Signs 10/09/17 08:03 Temperature 96.3 F L Pulse Rate [ 89 Left Radial] Respiratory 22 Rate Blood Pressure 167/99 [Left Arm] O2 Sat by Pulse 96 Oximetry Progress - Progress Progress: 10/09/17 08:46 Toradol 60mg IM given - Results/Orders Results/Orders: FSBS: 140 - EKG/XRAY/CT XRAY: Foot: Calcaneal spur, o/w nl per Rad Procedures - Splinting Right Foot Pre-Made Type: Orthoboot Pre-Proc Neuro Vasc Exam: normal Post-Proc Neuro Vasc Exam: normal Departure - Departure Clinical Impression: Plantar fasciitis of right foot, Medication refill Time of Disposition: 08:47 Disposition: Discharge to Home or Self Care Condition: Good Departure Forms: ED Discharge - Pt. Copy, Patient Portal Self Enrollment Instructions: DI for Plantar Fasciitis Diet: resume usual diet Activity: increase activity as tolerated Referrals: Mathieu Mehta MD [Primary Care Provider] - 1-2 Weeks Prescriptions: Amlodipine Besylate 5 mg PO DAILY #7 tab Insulin Glargine [Basaglar Kwikpen] 25 unit SC DAILY #1 inj Lisinopril & Hydrochlorothiazi [Lisinopril/Hctz 20-25 mg] 1 tab PO DAILY #7 tab Metformin HCl 1,000 mg PO BID #14 tab Naproxen [Naprosyn] 500 mg PO BID #40 tab Home Medications: Ambulatory Orders Amlodipine Besylate 5 mg PO DAILY 01/10/17 HYDROcodone 10MG/APAP 325MG [[place] ] 1 ea PO Q4H PRN 01/10/17 Lisinopril & Hydrochlorothiazi [Lisinopril/Hctz 20-25 mg] 1 tab PO DAILY Metformin HCl 1,000 mg PO BID #60 tab 07/06/17 Amlodipine Besylate 5 mg PO DAILY #7 tab 10/09/17 Insulin Glargine [Basaglar Kwikpen] 25 unit SC DAILY 10/09/17 Insulin Glargine [Basaglar Kwikpen] 25 unit SC DAILY #1 inj 10/09/17 Lisinopril & Hydrochlorothiazi [Lisinopril/Hctz 20-25 mg] 1 tab PO DAILY #7 tab 10/09/17 Metformin HCl 1,000 mg PO BID #14 tab 10/09/17 Naproxen [Naprosyn] 500 mg PO BID #40 tab 10/09/17
--- NOTE | 2017-10-09 08:41 | RAD ---
EXAM DESCRIPTION: Foot,Right 3 Views CLINICAL HISTORY: 56 years Male, heel pain X 3 weeks COMPARISON: None. TECHNIQUE: 3 views FINDINGS: Dorsal and plantar calcaneal spur formation. No fractures are evident. No articular abnormalities are seen. Soft tissues are unremarkable. IMPRESSION: Calcaneal spur formation. 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
[2017-10-09] MEDS ORDERED: KETOROLAC TROMETHAMINE INJ 60 MG/2 ML VIAL IM ONE (08:45)
[2017-10-09 09:13] VITALS: BP 161/108; O2SAT 97
== END 2017-10-09 09:15 | disposition home or self-care (01) ==
LOC: ER 07:55
DX: M72.2 Plantar fascial fibromatosis (principal); M77.31 Calcaneal spur, right foot; Z76.0 Encounter for issue of repeat prescription; Z87.891 Personal history of nicotine dependence; J44.9 Chronic obstructive pulmonary disease, unspecified; I10 Essential (primary) hypertension; E11.9 Type 2 diabetes mellitus without complications; K21.9 Gastro-esophageal reflux disease without esophagitis; Z88.3 Allergy status to other anti-infective agents; Z79.4 Long term (current) use of insulin; Z79.899 Other long term (current) drug therapy
CPT/HCPCS: 36416; 73630; 82948; J1885

== ENCOUNTER 2018-05-27 19:31 | Emergency (ER) | payer SELFPAY ==
--- NOTE | 2018-05-27 19:57 | ED.PDOC ---
History of Present Illness - General Chief Complaint: Blood Pressure Problem Stated Complaint: High Blood Pressure Time Seen by Provider: 05/27/18 19:54 Source: patient, Vital Signs reviewed Additional Information: 57 YEAR OLD COMPLAINTS OF BLOOD PRESSURE THAT IS OUT OF CONTROL HE HAS GENERALISED WEAKNESS LACK OF ENERGY HE HAS KNOWN HISTORY OF HYPERTENSION TYPE II DM HE IS A CHRONIC SMOKER WITH COPD WELL HE DENIES CHEST PAIN SHORTNESS OF BREATH FOCAL WEAKNESS NUMBNESS HEADACHE OR DIZZINESS - History of Present Illness Timing/Duration: 1 week Severity: mild Improving Factors: nothing Associated Symptoms: denies symptoms Allergies/Adverse Reactions: Allergies Erythromycin Allergy (Verified 05/27/18 19:42) Hives Home Medications: Ambulatory Orders HYDROcodone 10MG/APAP 325MG [[place] 10/325] 1 tab PO TID 04/15/15 Albuterol Inhaler [Ventolin Hfa Inhaler] 2 puff INH Q6H PRN #1 inh 12/12/16 Amlodipine Besylate 10 mg PO DAILY 12/12/16 Lisinopril & Hydrochlorothiazi [Lisinopril/Hctz 20-25 mg] 1 tab PO BID 12/12/16 Amlodipine Besylate 5 mg PO DAILY 01/10/17 HYDROcodone 10MG/APAP 325MG [[place] 10/325] 1 ea PO Q4H PRN 01/10/17 Lisinopril & Hydrochlorothiazi [Lisinopril/Hctz 20-25 mg] 1 tab PO DAILY Metformin HCl 1,000 mg PO BID #60 tab 07/06/17 Amlodipine Besylate 5 mg PO DAILY #7 tab 10/09/17 Insulin Glargine [Basaglar Kwikpen] 25 unit SC DAILY 10/09/17 Insulin Glargine [Basaglar Kwikpen] 25 unit SC DAILY #1 inj 10/09/17 Lisinopril & Hydrochlorothiazi [Lisinopril/Hctz 20-25 mg] 1 tab PO DAILY #7 tab 10/09/17 Metformin HCl 1,000 mg PO BID #14 tab 10/09/17 Naproxen [Naprosyn] 500 mg PO BID #40 tab 10/09/17 Review of Systems - Review of Systems Constitutional: States: no symptoms reported EENTM: States: no symptoms reported Respiratory: States: no symptoms reported Cardiology: States: no symptoms reported Gastrointestinal/Abdominal: States: no symptoms reported Genitourinary: States: no symptoms reported Musculoskeletal: States: no symptoms reported Skin: States: no symptoms reported Neurological: States: no symptoms reported Endocrine: States: no symptoms reported Hematologic/Lymphatic: States: no symptoms reported Past Medical History (General) - Patient Medical History Hx Seizures: No Hx Stroke: No Hx Dementia: No Hx Asthma: No Hx of COPD: No Hx Cardiac Disorders: No Hx Congestive Heart Failure: No Hx Pacemaker: No Hx Hypertension: Yes Hx Thyroid Disease: No Hx Diabetes: Yes Hx Gastroesophageal Reflux: No Hx Renal Disease: No Hx Cancer: No Hx of HIV: No Hx Hepatitis C: No Hx MRSA: No Surgical History: cholecystectomy - Vaccination History Hx Tetanus, Diphtheria Vaccination: Yes Hx Influenza Vaccination: Yes Hx Pneumococcal Vaccination: No Immunizations Up to Date: Yes - Social History Hx Tobacco Use: Yes Hx Chewing Tobacco Use: No Hx Alcohol Use: No Hx Substance Use: No Hx Substance Use Treatment: No Hx Depression: No Feels Threatened In Home Enviroment: No Feels Threatened In a Relationship: No Hx Physical Abuse: No Hx Emotional Abuse: No Hx Suspected Abuse: No - Activities of Daily Living Hospice Agency (if applicable):: None - Female History Patient : No Family Medical History - Family History Mother Living Status: Cause of : COPD/Emphysema Hx Cardiac Disease: Yes Hx Family Diabetes: Yes Father Living Status: Cause of : prostate cancer Hx Family Cancer: Yes - Prostate Physical Exam - Physical Exam General Appearance: Alert, Comfortable Eye Exam: bilateral normal Ears, Nose, Throat: hearing grossly normal, normal ENT inspection, normal pharynx, abnormal TM (R) Neck: non-tender, full range of motion, supple Respiratory: chest non-tender, lungs clear, normal breath sounds, no respiratory distress Cardiovascular/Chest: normal peripheral pulses, regular rate, rhythm, no edema Gastrointestinal/Abdominal: normal bowel sounds, non tender, soft, no organomegaly, no pulsatile mass Back Exam: normal inspection, no CVA tenderness, no vertebral tenderness Extremity: normal range of motion, non-tender, normal inspection, no pedal edema Neurologic: noodle maker II-XII nml as tested, no motor/sensory deficits, alert, normal mood/affect Skin Exam: normal color, warm/dry Progress - Results/Orders Results/Orders: Laboratory Tests 05/27/18 05/27/18 19:54 20:04 WBC 7.8 RBC 5.16 Hgb 15.3 Hct 43.8 MCV 84.8 MCH 29.7 MCHC 35.0 RDW 13.9 Plt Count 179 MPV 8.4 Absolute Neuts (auto) 4.60 Absolute Lymphs (auto) 2.10 Absolute Monos (auto) 0.60 Absolute Eos (auto) 0.40 Absolute Basos (auto) 0.00 Neutrophils % 59.0 Lymphocytes % 27.1 Monocytes % 8.0 Eosinophils % 5.6 H Basophils % 0.3 Sodium 138 Potassium 3.6 Chloride 102 Carbon Dioxide 30 Anion Gap 9.6 L BUN 16 Creatinine 0.70 BUN/Creatinine Ratio 22.9 H Random Glucose 185 H Serum Osmolality 281.7 Calcium 9.6 Departure - Departure Clinical Impression: Essential hypertension Time of Disposition: 21:13 Disposition: Discharge to Home or Self Care Condition: Good Departure Forms: ED Discharge - Pt. Copy, Patient Portal Self Enrollment Instructions: DI for High Blood Pressure Diet: low salt diet Referrals: Mathieu Mehta MD [Primary Care Provider] - 1-2 Weeks Home Medications: Ambulatory Orders HYDROcodone 10MG/APAP 325MG [[place] 10/325] 1 tab PO TID 04/15/15 Albuterol Inhaler [Ventolin Hfa Inhaler] 2 puff INH Q6H PRN #1 inh 12/12/16 Amlodipine Besylate 10 mg PO DAILY 12/12/16 Lisinopril & Hydrochlorothiazi [Lisinopril/Hctz 20-25 mg] 1 tab PO BID 12/12/16 Amlodipine Besylate 5 mg PO DAILY 01/10/17 HYDROcodone 10MG/APAP 325MG [[place] 10/325] 1 ea PO Q4H PRN 01/10/17 Lisinopril & Hydrochlorothiazi [Lisinopril/Hctz 20-25 mg] 1 tab PO DAILY Metformin HCl 1,000 mg PO BID #60 tab 07/06/17 Amlodipine Besylate 5 mg PO DAILY #7 tab 10/09/17 Insulin Glargine [Basaglar Kwikpen] 25 unit SC DAILY 10/09/17 Insulin Glargine [Basaglar Kwikpen] 25 unit SC DAILY #1 inj 10/09/17 Lisinopril & Hydrochlorothiazi [Lisinopril/Hctz 20-25 mg] 1 tab PO DAILY #7 tab 10/09/17 Metformin HCl 1,000 mg PO BID #14 tab 10/09/17 Naproxen [Naprosyn] 500 mg PO BID #40 tab 10/09/17
[2018-05-27 20:46] VITALS: O2SAT 97
[2018-05-27 20:48] VITALS: TEMP 97
[2018-05-27 21:17] VITALS: BP 135/91
== END 2018-05-27 21:18 | disposition home or self-care (01) ==
LOC: ER 19:31
DX: I10 Essential (primary) hypertension (principal); E11.9 Type 2 diabetes mellitus without complications; J44.9 Chronic obstructive pulmonary disease, unspecified; F17.200 Nicotine dependence, unspecified, uncomplicated; Z79.4 Long term (current) use of insulin; Z79.84 Long term (current) use of oral hypoglycemic drugs; Z87.891 Personal history of nicotine dependence

== ENCOUNTER 2019-01-05 22:25 | Emergency (ER) | payer SELFPAY ==
[2019-01-05] MEDS ORDERED: IPRATROPIUM/ALBUTEROL 3 ML VIAL NEB ONE (22:44)
--- NOTE | 2019-01-05 22:47 | ED.PDOC ---
History of Present Illness - General Chief Complaint: Respiratory Problem Stated Complaint: shortness of breath Time Seen by Provider: 01/05/19 22:36 Source: patient Exam Limitations: no limitations - History of Present Illness Initial Comments: Patient presents with dyspnea for three weeks. He has COPD and still smokes 1 - 1.5 packs per day. The dyspnea has been getting worse so he finally came in tonight. He has had a productive cough as well. Denies chest pain. Has IDDM but says that steroids only affect his blood sugar minimally. No other complaints. Timing/Duration: other - 3 weeks Severity: moderate Worsening Factors: movement Associated Symptoms: other - as in HPI Allergies/Adverse Reactions: Allergies Erythromycin Allergy (Verified 05/27/18 19:42) Hives Home Medications: Ambulatory Orders HYDROcodone 10MG/APAP 325MG [[place] 10/325] 1 tab PO TID 04/15/15 Albuterol Inhaler [Ventolin Hfa Inhaler] 2 puff INH Q6H PRN #1 inh 12/12/16 Amlodipine Besylate 10 mg PO DAILY 12/12/16 Lisinopril & Hydrochlorothiazi [Lisinopril/Hctz 20-25 mg] 1 tab PO BID 12/12/16 Amlodipine Besylate 5 mg PO DAILY 01/10/17 HYDROcodone 10MG/APAP 325MG [[place] 10/325] 1 ea PO Q4H PRN 01/10/17 Lisinopril & Hydrochlorothiazi [Lisinopril/Hctz 20-25 mg] 1 tab PO DAILY 07/05/17 Metformin HCl 1,000 mg PO BID #60 tab 07/06/17 Amlodipine Besylate 5 mg PO DAILY #7 tab 10/09/17 Insulin Glargine [Basaglar Kwikpen] 25 unit SC DAILY 10/09/17 Insulin Glargine [Basaglar Kwikpen] 25 unit SC DAILY #1 inj 10/09/17 Lisinopril & Hydrochlorothiazi [Lisinopril/Hctz 20-25 mg] 1 tab PO DAILY #7 tab 10/09/17 Metformin HCl 1,000 mg PO BID #14 tab 10/09/17 Naproxen [Naprosyn] 500 mg PO BID #40 tab 10/09/17 Albuterol Inhaler [Ventolin Hfa Inhaler] 1 puff INH Q4HR PRN #1 inh 01/06/19 Azithromycin [Zithromax Z-Joshua] 250 mg PO DAILY #6 tab 01/06/19 Prednisone [Deltasone] 20 mg PO DAILY #5 tab 01/06/19 Review of Systems - Review of Systems Constitutional: States: no symptoms reported EENTM: States: no symptoms reported Respiratory: States: see HPI Cardiology: States: no symptoms reported Gastrointestinal/Abdominal: States: no symptoms reported Genitourinary: States: no symptoms reported Musculoskeletal: States: no symptoms reported Skin: States: no symptoms reported Neurological: States: no symptoms reported Endocrine: States: see HPI Hematologic/Lymphatic: States: no symptoms reported Past Medical History (General) - Patient Medical History Hx Seizures: No Hx Stroke: No Hx Dementia: No Hx Asthma: No Hx of COPD: No Hx Cardiac Disorders: No Hx Congestive Heart Failure: No Hx Pacemaker: No Hx Hypertension: Yes Hx Thyroid Disease: No Hx Diabetes: Yes Hx Gastroesophageal Reflux: No Hx Renal Disease: No Hx Cancer: No Hx of HIV: No Hx Hepatitis C: No Hx MRSA: No - Vaccination History Hx Tetanus, Diphtheria Vaccination: Yes Hx Influenza Vaccination: Yes Hx Pneumococcal Vaccination: No - Social History Hx Tobacco Use: Yes Hx Chewing Tobacco Use: No Hx Alcohol Use: No Hx Substance Use: No Hx Substance Use Treatment: No Hx Depression: No Hx Physical Abuse: No Hx Emotional Abuse: No Hx Suspected Abuse: No - Female History Patient : No Family Medical History - Family History Mother Living Status: Cause of : COPD/Emphysema Hx Cardiac Disease: Yes Hx Family Diabetes: Yes Father Living Status: Cause of : prostate cancer Hx Family Cancer: Yes - Prostate Physical Exam - Physical Exam General Appearance: Alert Eye Exam: bilateral normal Ears, Nose, Throat: normal ENT inspection Neck: non-tender, full range of motion, supple Respiratory: wheezing - expiratory wheezing in all lung schmitt Cardiovascular/Chest: normal peripheral pulses, regular rate, rhythm Gastrointestinal/Abdominal: normal bowel sounds, non tender, soft Back Exam: normal inspection, no CVA tenderness Extremity: normal range of motion, non-tender, normal inspection Neurologic: no motor/sensory deficits, alert, normal mood/affect, oriented x 3 Skin Exam: normal color Lymphatic: no adenopathy Progress - Progress Progress: 01/06/19 00:02 Laboratory Tests 01/05/19 01/05/1901/05/19 22:37 23:04 23:04 WBC 8.7 RBC 5.34 Hgb 15.5 Hct 45.0 MCV 84.3 MCH 29.0 MCHC 34.4 RDW 13.6 Plt Count 222 MPV 8.4 Absolute Neuts (auto) 5.40 Absolute Lymphs (auto) 2.40 Absolute Monos (auto) 0.70 Absolute Eos (auto) 0.20 Absolute Basos (auto) 0.00 Neutrophils % 62.0 Lymphocytes % 27.2 Monocytes % 7.7 Eosinophils % 2.8 Basophils % 0.3 PT 9.8 INR 0.98 PTT (SP) 26.8 Sodium Potassium Chloride Carbon Dioxide Anion Gap BUN Creatinine BUN/Creatinine Ratio POC Glucose 180 H Random Glucose Serum Osmolality Calcium Magnesium Total Bilirubin AST ALT Alkaline Phosphatase Creatine Kinase B-Natriuretic Peptide Serum Total Protein Albumin Globulin Albumin/Globulin Ratio 01/05/19 01/05/19 23:04 23:04 WBC RBC Hgb Hct MCV MCH MCHC RDW Plt Count MPV Absolute Neuts (auto) Absolute Lymphs (auto) Absolute Monos (auto) Absolute Eos (auto) Absolute Basos (auto) Neutrophils % Lymphocytes % Monocytes % Eosinophils % Basophils % PT INR PTT (SP) Sodium 135 Potassium 3.6 Chloride 99 L Carbon Dioxide 26 Anion Gap 13.6 BUN 15 Creatinine 0.65 BUN/Creatinine Ratio 23.1 H POC Glucose Random Glucose 188 H Serum Osmolality 275.9 Calcium 9.4 Magnesium 1.9 Total Bilirubin 0.4 AST 22 ALT 24 Alkaline Phosphatase 55 Creatine Kinase 243 H* B-Natriuretic Peptide 9.0 Serum Total Protein 7.2 Albumin 4.4 Globulin 2.8 Albumin/Globulin Ratio 1.6 Patient felt much better after a duonebs and solumedrol 60 mg IV x one. wbc normal. CXR normal. He was given RX for prednisone 20 mg po qd x 5 day, albuterol MDI, and a Z-pack. Care instructions given. E.R. warnings given. Questions were elicited and answered. Patient voiced understanding and agreement with the plan Departure - Departure Clinical Impression: COPD exacerbation Disposition: Discharge to Home or Self Care Condition: Good Departure Forms: ED Discharge - Pt. Copy, Patient Portal Self Enrollment Diet: diabetic diet Activity: increase activity as tolerated Referrals: Mathieu Mehta MD [Primary Care Provider] - 1-2 Weeks Prescriptions: Albuterol Inhaler [Ventolin Hfa Inhaler] 1 puff INH Q4HR PRN #1 inh PRN Reason: Shortness Of Breath/Wheezing Azithromycin [Zithromax Z-Joshua] 250 mg PO DAILY #6 tab Prednisone [Deltasone] 20 mg PO DAILY #5 tab Home Medications: Ambulatory Orders HYDROcodone 10MG/APAP 325MG [[place] 10/325] 1 tab PO TID 04/15/15 Albuterol Inhaler [Ventolin Hfa Inhaler] 2 puff INH Q6H PRN #1 inh 12/12/16 Amlodipine Besylate 10 mg PO DAILY 12/12/16 Lisinopril & Hydrochlorothiazi [Lisinopril/Hctz 20-25 mg] 1 tab PO BID 12/12/16 Amlodipine Besylate 5 mg PO DAILY 01/10/17 HYDROcodone 10MG/APAP 325MG [[place] 10/325] 1 ea PO Q4H PRN 01/10/17 Lisinopril & Hydrochlorothiazi [Lisinopril/Hctz 20-25 mg] 1 tab PO DAILY 07/05/17 Metformin HCl 1,000 mg PO BID #60 tab 07/06/17 Amlodipine Besylate 5 mg PO DAILY #7 tab 10/09/17 Insulin Glargine [Basaglar Kwikpen] 25 unit SC DAILY 10/09/17 Insulin Glargine [Basaglar Kwikpen] 25 unit SC DAILY #1 inj 10/09/17 Lisinopril & Hydrochlorothiazi [Lisinopril/Hctz 20-25 mg] 1 tab PO DAILY #7 tab 10/09/17 Metformin HCl 1,000 mg PO BID #14 tab 10/09/17 Naproxen [Naprosyn] 500 mg PO BID #40 tab 10/09/17 Albuterol Inhaler [Ventolin Hfa Inhaler] 1 puff INH Q4HR PRN #1 inh 01/06/19 Azithromycin [Zithromax Z-Joshua] 250 mg PO DAILY #6 tab 01/06/19 Prednisone [Deltasone] 20 mg PO DAILY #5 tab 01/06/19 Critical Care Note - Critical Care Note Total Time (mins): 35
[2019-01-05 22:51] VITALS: TEMP 97.4
[2019-01-05] MEDS ORDERED: methylPREDNISolone SODIUM SUC 125 MG/2 ML VIAL IV ONE (22:59)
--- NOTE | 2019-01-05 23:55 | RAD ---
EXAM DESCRIPTION: Chest,1 View CLINICAL HISTORY: Shortness of breath COMPARISON: July 05, 2017 FINDINGS: Cardiac silhouette is within normal limits. There is no focal parenchymal or pleural disease. There is no acute osseous process visualized. There are old rib fractures. IMPRESSION: No evidence of acute cardiopulmonary disease. Electronically signed by: Tony Royal MD 01/05/2019 11:52 PM SCREEN HANDLER
[2019-01-06 00:19] VITALS: BP 163/98; O2SAT 95
== END 2019-01-06 00:22 | disposition home or self-care (01) ==
LOC: ER 22:25
DX: J44.1 Chronic obstructive pulmonary disease with (acute) exacerbation (principal); F17.210 Nicotine dependence, cigarettes, uncomplicated; E11.9 Type 2 diabetes mellitus without complications; I10 Essential (primary) hypertension; Z79.4 Long term (current) use of insulin; Z79.899 Other long term (current) drug therapy; Z88.1 Allergy status to other antibiotic agents
CPT/HCPCS: 36415; 71045; 80053; 82550; 82553; 82948; 83735; 83880; 84484; 85025; 85610; 85730; 93005; 94640; J2930; J7620

== ENCOUNTER 2019-05-20 19:35 | Emergency (ER) | payer SELFPAY ==
--- NOTE | 2019-05-20 20:00 | ED.PDOC ---
History of Present Illness - General Chief Complaint: Respiratory Problem Stated Complaint: SOB, previously tx for bronchitis Time Seen by Provider: 05/20/19 19:48 Source: patient Exam Limitations: no limitations - History of Present Illness Initial Comments: Vamshi Tenorio 58 y/o male came to ER with non productive cough .wheezing ,SOB for the last 2 days.Had it for several weeks seen by his primary Md was given steroid pill and oral steroids got better but recurred for the last 2 days.No fever or chills,no CP.Continue to smoke. Timing/Duration: days - 2 Severity: moderate Activities at Onset: none Possible Cause: occasional episodes Improving Factors: nothing Worsening Factors: nothing Respiratory Risk Factors: other - smoking Allergies/Adverse Reactions: Allergies Erythromycin Allergy (Verified 05/20/19 19:48) Hives Home Medications: Ambulatory Orders Albuterol Inhaler [Ventolin Hfa Inhaler] 2 puff INH Q6H PRN #1 inh 12/12/16 Amlodipine Besylate 5 mg PO DAILY 12/12/16 HYDROcodone 10MG/APAP 325MG [[place] 10325] 1 ea PO Q4H PRN 01/10/17 Insulin Glargine [Basaglar Kwikpen] 25 unit SC DAILY #1 inj 10/09/17 Metformin HCl [Metformin Hydrochloride] 1,000 mg PO BID #14 tab 10/09/17 Albuterol Inhaler [Ventolin Hfa Inhaler] 1 puff INH Q4HR PRN #1 inh 01/06/19 Cefuroxime Axetil [Ceftin] 500 mg PO Q12H 7 Days #14 tablet 05/20/19 predniSONE 20 mg PO DAILY #7 tab 05/20/19 Review of Systems - Review of Systems Respiratory: States: see HPI, cough, short of breath, wheezing All other Systems: Reviewed and Negative, No Change from Baseline Past Medical History (General) - Patient Medical History Hx Seizures: No Hx Stroke: No Hx Dementia: No Hx Asthma: No Hx of COPD: Yes Hx Cardiac Disorders: No Hx Congestive Heart Failure: No Hx Pacemaker: No Hx Hypertension: Yes Hx Thyroid Disease: No Hx Diabetes: Yes Hx Gastroesophageal Reflux: No Hx Renal Disease: No Hx Cancer: No Hx of HIV: No Hx Hepatitis C: No Hx MRSA: No Surgical History: cholecystectomy - Vaccination History Hx Tetanus, Diphtheria Vaccination: Yes Hx Influenza Vaccination: No Hx Pneumococcal Vaccination: No - Social History Hx Tobacco Use: Yes Years Tobacco Use: 38 Cigarettes Packs Per Day: 15 Hx Chewing Tobacco Use: No Hx Alcohol Use: No Hx Substance Use: No Hx Substance Use Treatment: No Hx Depression: No Hx Physical Abuse: No Hx Emotional Abuse: No Hx Suspected Abuse: No - Female History Patient : No Family Medical History - Family History Mother Living Status: Cause of : COPD/Emphysema Hx Cardiac Disease: Yes Hx Family Diabetes: Yes Father Living Status: Cause of : prostate cancer Hx Family Cancer: Yes - Prostate Physical Exam - Physical Exam General Appearance: Alert, Comfortable, No apparent distress Eyes, Ears, Nose, Throat Exam: normal ENT inspection, pharynx normal Neck: supple, normal inspection Respiratory: chest non-tender, no respiratory distress, no accessory muscle use, wheezing Cardiovascular/Chest: normal peripheral pulses, regular rate, rhythm, no gallop, no murmur Peripheral Pulses: radial,right: 2+, radial,left: 2+ Gastrointestinal/Abdominal: normal bowel sounds, non tender, soft Extremity: no pedal edema, no calf tenderness Neurologic: alert, oriented x 3 Skin Exam: normal color, warm/dry Progress - Progress Progress: 05/20/19 20:07 Vital Signs - 8 hr 05/20/19 19:38 Temperature 97.7 F Pulse Rate [ 74 monitor] Respiratory 20 Rate Blood Pressure 166/116 [Left Arm] O2 Sat by Pulse 94 L Oximetry 05/20/19 21:40 Last Vital Signs Temp 97.7 F 05/20/19 19:38 Pulse 59 L 05/20/19 21:31 Resp 18 05/20/19 21:31 BP 135/66 05/20/19 21:31 Pulse Ox 93 L 05/20/19 21:31 - Results/Orders Results/Orders: 05/20/19 20:01 IV Care:Saline Lock per Protoc QSHIFT 05/21/19 09:00 [facility] Laboratory Results - last 24 hr 05/20/19 05/20/19 05/20/19 20:11 20:22 21:22 WBC 7.0 RBC 5.35 Hgb 15.6 Hct 45.9 MCV 85.9 MCH 29.1 MCHC 33.9 RDW 14.1 Plt Count 174 MPV 8.5 Absolute Neuts (auto) 3.90 Absolute Lymphs (auto) 2.10 Absolute Monos (auto) 0.60 Absolute Eos (auto) 0.40 Absolute Basos (auto) 0.00 Neutrophils % 55.6 Lymphocytes % 30.3 Monocytes % 8.2 Eosinophils % 5.2 H Basophils % 0.7 PT 9.6 INR 0.96 PTT (SP) 26.1 Sodium 134 L Potassium 4.2 Chloride 100 L Carbon Dioxide 27 Anion Gap 11.2 L BUN 17 Creatinine 0.84 BUN/Creatinine Ratio 20.2 H Random Glucose 212 H Serum Osmolality 276.1 Calcium 9.2 Magnesium 1.9 Total Bilirubin 0.3 Direct Bilirubin < 0.1 Indirect Bilirubin 0.2 AST 16 ALT 19 Alkaline Phosphatase 54 Creatine Kinase 124 CK-MB (CK-2) 3.9 CK-MB (CK-2) % Not Reportable Troponin I < 0.02 B-Natriuretic Peptide 50.9 Serum Total Protein 6.7 Albumin 3.9 TSH 1.56 Urine Color Yellow Urine Appearance Clear Urine pH 7.5 Ur Specific Alfred 1.020 Urine Protein Negative Urine Glucose (UA) 100 H Urine Ketones Negative Urine Blood Negative Urine Nitrite Negative Urine Bilirubin Negative Urine Urobilinogen 0.2 Ur Leukocyte Esterase Negative Urine RBC 0 Urine WBC 0-1 Ur Epithelial Cells 0 Urine Bacteria 0 Discuss all test results with patient - EKG/XRAY/CT XRAY: chest - no active pulmonary disease Departure - Departure Clinical Impression: Acute exacerbation of chronic bronchitis Time of Disposition: 22:34 Disposition: Discharge to Home or Self Care Condition: Fair Departure Forms: ED Discharge - Pt. Copy, Patient Portal Self Enrollment Instructions: Drugs to Help You Stop Using Tobacco, Quitting Smoking Referrals: Mathieu Mehta MD [Primary Care Provider] - 1-2 Weeks Prescriptions: Cefuroxime Axetil [Ceftin] 500 mg PO Q12H 7 Days #14 tablet predniSONE 20 mg PO DAILY #7 tab Home Medications: Ambulatory Orders Albuterol Inhaler [Ventolin Hfa Inhaler] 2 puff INH Q6H PRN #1 inh 12/12/16 Amlodipine Besylate 5 mg PO DAILY 12/12/16 HYDROcodone 10MG/APAP 325MG [[place] 10/325] 1 ea PO Q4H PRN 01/10/17 Insulin Glargine [Basaglar Kwikpen] 25 unit SC DAILY #1 inj 10/09/17 Metformin HCl [Metformin Hydrochloride] 1,000 mg PO BID #14 tab 10/09/17 Albuterol Inhaler [Ventolin Hfa Inhaler] 1 puff INH Q4HR PRN #1 inh 01/06/19 Cefuroxime Axetil [Ceftin] 500 mg PO Q12H 7 Days #14 tablet 05/20/19 predniSONE 20 mg PO DAILY #7 tab 05/20/19 Additional Instructions: Continue with all home medications;Return to Emergency Room as needed;follow up with primary Md 22 May 2019 for recheck
[2019-05-20] MEDS ORDERED: IPRATROPIUM/ALBUTEROL 3 ML VIAL NEB ONE ×2 (20:01→21:58)
[2019-05-20] MEDS ORDERED: methylPREDNISolone SODIUM SUC 40 MG/ML VIAL IV ONE (20:02)
--- NOTE | 2019-05-20 20:19 | RAD ---
EXAM: Chest,1 View CLINICAL INDICATION: Cough, shortness of breath COMPARISON: 01/05/2019 FINDINGS: A single view of the chest was obtained, which was repeated one time. The heart size is normal. The pulmonary vascularity is unremarkable. The lungs are clear. There is no consolidation, infiltrate, pleural effusion, or pneumothorax. Old healed rib fractures are seen on the left. IMPRESSION: No evidence of active pulmonary disease. Electronically signed by: Krishna Munoz MD 05/20/2019 8:17 PM CDT
[2019-05-20] MEDS ORDERED: cefTRIAXone SODIUM 1 GM in SODIUM CHL 0.9% 50ML MIN-BAG+ 50 ML IVPB ONE (22:02)
[2019-05-20 22:15] VITALS: O2SAT 95
[2019-05-20] MEDS ORDERED: SODIUM CHL 0.9% 50ML MIN-BAG+ 50 ML IVPB ONE (22:17)
[2019-05-20] MEDS ORDERED: cefTRIAXone SODIUM 1 GM VIAL ONE (22:17)
[2019-05-20 22:47] VITALS: BP 153/102; TEMP 97.9
== END 2019-05-20 22:44 | disposition home or self-care (01) ==
LOC: ER 19:35
DX: J20.9 Acute bronchitis, unspecified (principal); J44.0 Chronic obstructive pulmonary disease with (acute) lower respiratory infection; I10 Essential (primary) hypertension; E11.9 Type 2 diabetes mellitus without complications; F17.210 Nicotine dependence, cigarettes, uncomplicated; Z79.4 Long term (current) use of insulin; Z79.899 Other long term (current) drug therapy; Z88.1 Allergy status to other antibiotic agents
CPT/HCPCS: 36415; 71045; 80048; 80076; 81001; 82550; 82553; 83880; 84443; 84484; 85025; 85610; 85730; 94640; J0696; J1030; J7050; J7620

== ENCOUNTER 2019-12-25 03:35 | Emergency (ER) | payer SELFPAY ==
[2019-12-25] MEDS ORDERED: MORPHINE SULFATE INJ 10 MG/ML VIAL IV ONE ×2 (03:50→05:28)
[2019-12-25] MEDS ORDERED: DICYCLOMINE HCL INJ 20 MG/2 ML AMP IM ONE (03:50)
[2019-12-25] MEDS ORDERED: KETOROLAC TROMETHAMINE INJ 30 MG/ML VIAL IV ONE ×2 (03:50→05:36)
[2019-12-25] MEDS ORDERED: SODIUM CHLORIDE 0.9% 1000ML 1,000 ML IVS ONE (03:54)
[2019-12-25] MEDS ORDERED: levoFLOXacin 500MG IV 100 ML IVPB ONE (05:41)
--- NOTE | 2019-12-25 06:23 | ED.PDOC ---
History of Present Illness - General Chief Complaint: Abdominal Pain Stated Complaint: right flank pain Time Seen by Provider: 12/25/19 06:19 - History of Present Illness Abdominal Pain Onset Location: flank - Right Pain Radiation: groin Quality: severe, sharpness Timing/Duration: 1-3 hours Improving Factors: nothing Worsening Factors: nothing Associated Symptoms: denies symptoms Review of Systems - Review of Systems Constitutional: States: no symptoms reported EENTM: States: no symptoms reported Respiratory: States: no symptoms reported Cardiology: States: no symptoms reported Gastrointestinal/Abdominal: States: see HPI Genitourinary: States: no symptoms reported Musculoskeletal: States: no symptoms reported Skin: States: no symptoms reported Neurological: States: no symptoms reported Endocrine: States: no symptoms reported Hematologic/Lymphatic: States: no symptoms reported Past Medical History (General) - Patient Medical History Hx Seizures: No Hx Stroke: No Hx Dementia: No Hx Asthma: No Hx of COPD: Yes Hx Cardiac Disorders: No Hx Congestive Heart Failure: No Hx Pacemaker: No Hx Hypertension: Yes Hx Thyroid Disease: No Hx Diabetes: Yes Hx Gastroesophageal Reflux: No Hx Renal Disease: No Hx Cancer: No Hx of HIV: No Hx Hepatitis C: No Hx MRSA: No - Vaccination History Hx Tetanus, Diphtheria Vaccination: Yes Hx Influenza Vaccination: No Hx Pneumococcal Vaccination: No - Social History Hx Tobacco Use: Yes Hx Chewing Tobacco Use: No Hx Alcohol Use: Yes Hx Substance Use: No Hx Substance Use Treatment: No Hx Depression: No Hx Physical Abuse: No Hx Emotional Abuse: No Hx Suspected Abuse: No - Female History Patient : No Family Medical History - Family History Mother Living Status: Cause of : COPD/Emphysema Hx Cardiac Disease: Yes Hx Family Diabetes: Yes Father Living Status: Cause of : prostate cancer Hx Family Cancer: Yes - Prostate Physical Exam - Physical Exam General Appearance: Well Developed, Well Groomed, Well Hydrated, Well Nourished, Other - In pain Eyes, Ears, Nose, Throat Exam: PERRL/EOMI, normal ENT inspection Neck: non-tender, full range of motion, supple, normal inspection Respiratory: chest non-tender, lungs clear, normal breath sounds, no respiratory distress, no accessory muscle use Cardiovascular/Chest: regular rate, rhythm Gastrointestinal/Abdominal: soft, tenderness - R flank and R jeniffer Back Exam: normal inspection, no CVA tenderness, no vertebral tenderness Extremity: normal range of motion, non-tender, normal inspection, no pedal edema, no calf tenderness Neurologic: differential repairer II-XII nml as tested, no motor/sensory deficits, alert, normal mood/affect, oriented x 3 Skin Exam: normal color, warm/dry Progress - Results/Orders Results/Orders: Laboratory Results WBC 6.7 K/mm3 (4.8-10.8) 12/25/19 04:15 RBC 5.30 M/mm3 (4.70-6.10) 12/25/19 04:15 Hgb 15.3 gm/dL (14.0-18.0) 12/25/19 04:15 Hct 44.9 % (42.0-52.0) 12/25/19 04:15 MCV 84.8 fl (80.0-94.0) 12/25/19 04:15 MCH 28.8 pg (27.0-31.0) 12/25/19 04:15 MCHC 34.0 g/dL (33.0-37.0) 12/25/19 04:15 RDW 13.4 % (11.5-14.5) 12/25/19 04:15 Plt Count 196 K/mm3 (130-400) 12/25/19 04:15 MPV 8.2 fl (7.40-10.4) 12/25/19 04:15 Absolute Neuts (auto) 3.20 K/uL (1.8-6.8) 12/25/19 04:15 Absolute Lymphs (auto) 2.60 K/uL (1.0-3.4) 12/25/19 04:15 Absolute Monos (auto) 0.50 K/uL (0.2-0.8) 12/25/19 04:15 Absolute Eos (auto) 0.30 K/uL (0.0-0.4) 12/25/19 04:15 Absolute Basos (auto) 0.00 K/uL (0.0-0.1) 12/25/19 04:15 Neutrophils % 47.8 % (42.0-78.0) 12/25/19 04:15 Lymphocytes % 39.0 % (20.0-50.0) 12/25/19 04:15 Monocytes % 8.2 % (2.0-9.0) 12/25/19 04:15 Eosinophils % 4.5 % (1.0-5.0) 12/25/19 04:15 Basophils % 0.5 % (0.0-2.0) 12/25/19 04:15 Sodium 134 mmol/L (135-145) L 12/25/19 04:15 Potassium 3.9 mmol/L (3.6-5.0) 12/25/19 04:15 Chloride 98 mmol/L (101-111) L 12/25/19 04:15 Carbon Dioxide 28 mmol/L (21-31) 12/25/19 04:15 Anion Gap 11.9 (12-18) L 12/25/19 04:15 BUN 19 mg/dL (7-18) H 12/25/19 04:15 Creatinine 0.72 mg/dL (0.6-1.3) 12/25/19 04:15 BUN/Creatinine Ratio 26.4 (10-20) H 12/25/19 04:15 Random Glucose 330 mg/dL (70-105) H 12/25/19 04:15 Serum Osmolality 283.4 mOsm/L (275-295) 12/25/19 04:15 Calcium 9.6 mg/dL (8.4-10.2) 12/25/19 04:15 Total Bilirubin 0.6 mg/dL (0.2-1.0) 12/25/19 04:15 AST 22 IU/L (10-42) 12/25/19 04:15 ALT 31 IU/L (10-60) 12/25/19 04:15 Alkaline Phosphatase 50 IU/L (42-121) 12/25/19 04:15 Serum Total Protein 6.9 gm/dL (6.4-8.2) 12/25/19 04:15 Albumin 4.2 g/dl (3.2-5.5) 12/25/19 04:15 Globulin 2.7 gm/dL (2.3-3.5) 12/25/19 04:15 Albumin/Globulin Ratio 1.6 (1.1-1.9) 12/25/19 04:15 Urine Color Dk yellow (Yellow) 12/25/19 04:15 Urine Appearance Cloudy (Clear) 12/25/19 04:15 Urine pH 5.5 (4.5-7.8) 12/25/19 04:15 Ur Specific [place] >= 1.030 (1.005-1.030) 12/25/19 04:15 Urine Protein Trace mg/dL 12/25/19 04:15 Urine Glucose (UA) 500 mg/dL (Negative) H 12/25/19 04:15 Urine Ketones Negative mg/dL (NEGATIVE) 12/25/19 04:15 Urine Blood Large (Negative) H 12/25/19 04:15 Urine Nitrite Negative 12/25/19 04:15 Urine Bilirubin Negative (NEGATIVE) 12/25/19 04:15 Urine Urobilinogen 0.2 mg/dL (0.2-1.0) 12/25/19 04:15 Ur Leukocyte Esterase Negative (Negative) 12/25/19 04:15 Urine RBC >50 /hpf H 12/25/19 04:15 Urine WBC 0 /hpf 12/25/19 04:15 Ur Epithelial Cells 0 /hpf 12/25/19 04:15 Urine Bacteria Rare 12/25/19 04:15 Departure - Departure Clinical Impression: Renal calculus, right, Ureteric stone Time of Disposition: : Disposition: Discharge to Home or Self Care Condition: Good Departure Forms: ED Discharge - Pt. Copy, Patient Portal Self Enrollment Instructions: DI for Abdominal Pain-Adult, Kidney Stones in Adults Diet: resume usual diet Activity: increase activity as tolerated, walking as tolerated Referrals: Mathieu Mehta MD [Primary Care Provider] - 1-2 Weeks Prescriptions: Ciprofloxacin HCl [Cipro] 500 mg PO BID #20 tab Dicyclomine HCl [Bentyl] 20 mg PO TID #15 tab Naproxen [Naprosyn] 500 mg PO BID #10 tab Tramadol HCl 50 mg PO QID #20 tab Home Medications: Ambulatory Orders Albuterol Inhaler [Ventolin Hfa Inhaler] 2 puff INH Q6H PRN #1 inh 12/12/16 Amlodipine Besylate 5 mg PO DAILY 12/12/16 HYDROcodone 10MG/APAP 325MG [[place] [address]] 1 ea PO Q4H PRN 01/10/17 Insulin Glargine [Basaglar Kwikpen] 25 unit SC DAILY #1 inj 10/09/17 Metformin HCl [Metformin Hydrochloride] 1,000 mg PO BID #14 tab 10/09/17 Albuterol Inhaler [Ventolin Hfa Inhaler] 1 puff INH Q4HR PRN #1 inh 01/06/19 Cefuroxime Axetil [Ceftin] 500 mg PO Q12H 7 Days #14 tablet 05/20/19 predniSONE 20 mg PO DAILY #7 tab 05/20/19 Ciprofloxacin HCl [Cipro] 500 mg PO BID #20 tab 12/25/19 Dicyclomine HCl [Bentyl] 20 mg PO TID #15 tab 12/25/19 Naproxen [Naprosyn] 500 mg PO BID #10 tab 12/25/19 Tramadol HCl 50 mg PO QID #20 tab 12/25/19 Additional Instructions: Follow up Urology as soon as possible
[2019-12-25 07:25] VITALS: BP 115/62; TEMP 97.1; O2SAT 96
--- NOTE | 2019-12-26 11:37 | CT ---
CT ABDOMEN AND PELVIS WITH CONTRAST. CLINICAL HISTORY: right flank pain COMPARISON: None. TECHNIQUE: Axial CT imaging of the abdomen and pelvis performed with intravenous contrast. Reformatted coronal and sagittal images reviewed. A dose reduction technique was utilized with automated exposure control according to patient size. FINDINGS: There is a 4 mm nodule lateral right lower lobe. Heart is normal in size. Mild hepatic enlargement 18.6 cm. No liver mass. No biliary dilatation. Gallbladder has been resected. Normal spleen and pancreas. Normal adrenal glands. There is a nonobstructing 5 mm left renal pelvic stone. There is mild right renal pelvic dilatation. AP pelvis is 2 cm. Proximal right ureteral 8 mm calculus. Mild right perinephric edema. The aorta is moderately atherosclerotic. No aneurysm. Normal caliber inferior vena cava. No adenopathy. Normal stomach and small bowel loops. Appendix is normal in the right lower quadrant. Unremarkable colon. No ascites or free air. Normal bladder and prostate. No perivesicle edema. There is moderate lower thoracic and mild upper lumbar degenerative change. Intact bony pelvis. Normal hips. IMPRESSION: 1. 8mm right proximal ureteral stone resulting in mild right hydronephrosis and obstructive uropathy. A nonobstructing left renal pelvic 5 mm stone is also present. 2. 4.0 mm solid pulmonary nodule detected on incomplete chest CT. No routine follow-up imaging is recommended. These guidelines do not apply to immunocompromised patients and patients with cancer. Follow up in patients with significant comorbidities as clinically warranted. For lung cancer screening, adhere to Lung-RADS guidelines. Reference: Radiology. 2017; 284(1):228-43. Electronically signed by: Mitzy Tobias DO 12/25/2019 5:[address] [facility]
== END 2019-12-25 07:23 | disposition home or self-care (01) ==
LOC: ER 03:35
DX: N13.2 Hydronephrosis with renal and ureteral calculous obstruction (principal); J44.9 Chronic obstructive pulmonary disease, unspecified; I10 Essential (primary) hypertension; E11.9 Type 2 diabetes mellitus without complications; Z87.891 Personal history of nicotine dependence; Z79.84 Long term (current) use of oral hypoglycemic drugs; Z79.899 Other long term (current) drug therapy
CPT/HCPCS: 74176; 80053; 81001; 85025; J0500; J1885; J1956; J2270; J7030

== ENCOUNTER 2019-12-25 15:35 | Emergency (ER) | payer SELFPAY ==
[2019-12-25] MEDS ORDERED: PROMETHAZINE HCL INJ 25 MG in SODIUM CHLORIDE 0.9% 50ML 50 ML IVPB ONE (15:44)
[2019-12-25] MEDS ORDERED: KETOROLAC TROMETHAMINE INJ 30 MG/ML VIAL IM ONE (15:44)
[2019-12-25] MEDS ORDERED: SODIUM CHLORIDE 0.9% 50ML 50 ML ONE (15:49)
[2019-12-25] MEDS ORDERED: PROMETHAZINE HCL INJ 25 MG/ML VIAL ONE (15:49)
[2019-12-25] MEDS ORDERED: HYDROcodone 10MG/APAP 325MG 1 EA TAB PO ONE (18:01)
--- NOTE | 2019-12-25 18:05 | ED.PDOC ---
History of Present Illness - General Chief Complaint: Problem Stated Complaint: right flank pain Time Seen by Provider: 12/25/19 15:43 Source: patient Exam Limitations: no limitations - History of Present Illness Initial Comments: The patient is a 59-year-old male presented emergency room secondary to recurrent right-sided pain secondary to a kidney stone that is 8 mm in the proximal right ureter as of early this morning on CT scan. No evidence of infection. He does not have a history of difficulty with passing stones in the past. No syncope. Pain was severe so he showed back up here. He is having pain down towards his testicle as well as nausea. Timing/Duration: 1-3 hours Severity: severe Improving Factors: nothing Worsening Factors: nothing Associated Symptoms: diaphoresis, malaise, nausea/vomiting Allergies/Adverse Reactions: Allergies Erythromycin Allergy (Verified 05/20/19 19:48) Hives Home Medications: Ambulatory Orders Albuterol Inhaler [Ventolin Hfa Inhaler] 2 puff INH Q6H PRN #1 inh 12/12/16 Amlodipine Besylate 5 mg PO DAILY 12/12/16 HYDROcodone 10MG/APAP 325MG [[place] 10/325] 1 ea PO Q4H PRN 01/10/17 Insulin Glargine [Basaglar Kwikpen] 25 unit SC DAILY #1 inj 10/09/17 Metformin HCl [Metformin Hydrochloride] 1,000 mg PO BID #14 tab 10/09/17 Albuterol Inhaler [Ventolin Hfa Inhaler] 1 puff INH Q4HR PRN #1 inh 01/06/19 Cefuroxime Axetil [Ceftin] 500 mg PO Q12H 7 Days #14 tablet 05/20/19 predniSONE 20 mg PO DAILY #7 tab 05/20/19 Ciprofloxacin HCl [Cipro] 500 mg PO BID #20 tab 12/25/19 Dicyclomine HCl [Bentyl] 20 mg PO TID #15 tab 12/25/19 Naproxen [Naprosyn] 500 mg PO BID #10 tab 12/25/19 Tramadol HCl 50 mg PO QID #20 tab 12/25/19 Review of Systems - Review of Systems Constitutional: States: no symptoms reported EENTM: States: no symptoms reported Respiratory: States: no symptoms reported Cardiology: States: no symptoms reported Gastrointestinal/Abdominal: States: abdominal pain, nausea Genitourinary: States: see HPI Musculoskeletal: States: no symptoms reported Skin: States: no symptoms reported Neurological: States: no symptoms reported All other Systems: No Change from Baseline Past Medical History (General) - Patient Medical History Hx Seizures: No Hx Stroke: No Hx Dementia: No Hx Asthma: No Hx of COPD: No Hx Cardiac Disorders: No Hx Congestive Heart Failure: No Hx Pacemaker: No Hx Hypertension: Yes Hx Thyroid Disease: No Hx Diabetes: No Hx Gastroesophageal Reflux: No Hx Renal Disease: No Hx Cancer: No Hx of HIV: No Hx Hepatitis C: No Hx MRSA: No Surgical History: cholecystectomy - Vaccination History Hx Tetanus, Diphtheria Vaccination: Yes Hx Influenza Vaccination: No Hx Pneumococcal Vaccination: No - Social History Hx Tobacco Use: Yes Hx Chewing Tobacco Use: No Hx Alcohol Use: Yes Hx Substance Use: No Hx Substance Use Treatment: No Hx Depression: No Feels Threatened In Home Enviroment: No Feels Threatened In a Relationship: No Hx Physical Abuse: No Hx Emotional Abuse: No Hx Suspected Abuse: No - Female History Patient is a Female of Child Bearing Age (10 -59 yrs old): No Patient : No - Triage Comment ED Triage Comment: The patient is nauseated and having Right flank pain. He was in the ED eairlier in the day and diagnosed with kidney stones and is having no relief. Family Medical History - Family History Mother Living Status: Cause of : COPD/Emphysema Hx Cardiac Disease: Yes Hx Family Diabetes: Yes Father Living Status: Cause of : prostate cancer Hx Family Cancer: Yes - Prostate Physical Exam - Physical Exam General Appearance: Alert, Obvious distress, Ill Appearing Eye Exam: bilateral normal Ears, Nose, Throat: hearing grossly normal, normal ENT inspection Neck: full range of motion, supple Respiratory: lungs clear, normal breath sounds, no respiratory distress, no accessory muscle use Cardiovascular/Chest: normal peripheral pulses, no edema, other - Regular rate Peripheral Pulses: radial,right: 2+, radial,left: 2+ Gastrointestinal/Abdominal: non tender, soft Rectal Exam: deferred Back Exam: normal inspection, CVA tenderness (R) Extremity: normal range of motion, non-tender, normal inspection, no pedal edema, normal capillary refill 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 He received a dose of Phenergan and a dose of Toradol here and is resting much more comfortably. He is receiving a dose of hydrocodone before he leaves for tonight. He was already written prescriptions by the previous ER doctor this morning for his other medications. He needs to keep himself well-hydrated. Needs to keep follow-up with his primary care doctor. Obviously return to the emergency room if he needs to. ER warnings were given. [email or web address] [id number] Departure - Departure Clinical Impression: Calcium ureterolithiasis Disposition: Discharge to Home or Self Care Condition: Fair Departure Forms: ED Discharge - Pt. Copy, Patient Portal Self Enrollment Instructions: DI for Kidney Stones Diet: regular diet Activity: increase activity as tolerated Referrals: Mathieu Mehta MD [Primary Care Provider] - 1-2 Weeks Home Medications: Ambulatory Orders Albuterol Inhaler [Ventolin Hfa Inhaler] 2 puff INH Q6H PRN #1 inh 12/12/16 Amlodipine Besylate 5 mg PO DAILY 12/12/16 HYDROcodone 10MG/APAP 325MG [[place] 10/325] 1 ea PO Q4H PRN 01/10/17 Insulin Glargine [Basaglar Kwikpen] 25 unit SC DAILY #1 inj 10/09/17 Metformin HCl [Metformin Hydrochloride] 1,000 mg PO BID #14 tab 10/09/17 Albuterol Inhaler [Ventolin Hfa Inhaler] 1 puff INH Q4HR PRN #1 inh 01/06/19 Cefuroxime Axetil [Ceftin] 500 mg PO Q12H 7 Days #14 tablet 05/20/19 predniSONE 20 mg PO DAILY #7 tab 05/20/19 Ciprofloxacin HCl [Cipro] 500 mg PO BID #20 tab 12/25/19 Dicyclomine HCl [Bentyl] 20 mg PO TID #15 tab 12/25/19 Naproxen [Naprosyn] 500 mg PO BID #10 tab 12/25/19 Tramadol HCl 50 mg PO QID #20 tab 12/25/19 Additional Instructions: The patient is a 59-year-old male presented emergency room secondary to recurrent pain from his 8mm right kidney stone moving. He received a dose of Phenergan and a dose of Toradol here and is resting much more comfortably. He is receiving a dose of hydrocodone before he leaves for tonight. He was already written prescriptions by the previous ER doctor this morning for his other medications. He needs to keep himself well-hydrated. Needs to keep follow-up with his primary care doctor. Obviously return to the emergency room if he needs to. ER warnings were given.
[2019-12-25 18:51] VITALS: BP 146/105; TEMP 97.4; O2SAT 95
== END 2019-12-25 18:51 | disposition home or self-care (01) ==
LOC: ER 15:35
DX: N20.1 Calculus of ureter (principal); I10 Essential (primary) hypertension; Z87.442 Personal history of urinary calculi; Z87.891 Personal history of nicotine dependence; Z79.899 Other long term (current) drug therapy; Z79.4 Long term (current) use of insulin; Z88.1 Allergy status to other antibiotic agents
CPT/HCPCS: A4216; J1885; J2550

== ENCOUNTER 2020-04-16 15:27 | Emergency (ER) | payer SELFPAY ==
[2020-04-16 15:40] VITALS: TEMP 96.2
--- NOTE | 2020-04-16 16:36 | ED.PDOC ---
History of Present Illness - General Chief Complaint: General Stated Complaint: weakness,lethargy Time Seen by Provider: 04/16/20 15:54 Source: patient, family Exam Limitations: no limitations - History of Present Illness Initial Comments: PER AND PT, 4+ D OF WEAKNESS, LETHARGY, FATIGUED, NO ENERGY, LIGHT HEADED, NAUSEOUS, DECR APPETITE. PER , HE IS USUALLY VERY ENERGETIC. APPROX 1 MO AGO, DR INCREASED LISINOPRIL/AMLODIPINE FROM 20/5 TO 40/10. PT AND WONDER IF TOO EFFICATIOUS. PT NOTICED FATIGUE SINCE THEN. H/O IDDM. SMOKES 1PPD. Timing/Duration: 1 week Severity: severe Improving Factors: nothing Worsening Factors: nothing Associated Symptoms: loss of appetite, malaise, weakness Allergies/Adverse Reactions: Allergies Erythromycin Allergy (Verified 05/20/19 19:48) Hives Home Medications: Ambulatory Orders Albuterol Inhaler [Ventolin Hfa Inhaler] 2 puff INH Q6H PRN #1 inh 12/12/16 Amlodipine Besylate 10 mg PO DAILY 12/12/16 HYDROcodone 10MG/APAP 325MG [[place] 10/325] 1 ea PO Q4H PRN 01/10/17 Chlorthalidone 04/16/20 Insulin NPH (Human) (Isophane) [Novolin N] 10 unit SC BEDTIME 04/16/20 Insulin NPH (Human) (Isophane) [Novolin N] 20 unit SC DAILY 04/16/20 Insulin Regular (Human) [Novolin R] 10 unit IJ BEDTIME 04/16/20 Insulin Regular (Human) [Novolin R] 10 unit IJ DAILY 04/16/20 Lisinopril 40 mg PO DAILY 04/16/20 Paroxetine HCl [Paxil] 10 mg PO DAILY 04/16/20 Tramadol HCl 50 mg PO PRN 04/16/20 Review of Systems - Review of Systems Constitutional: States: malaise, weakness. Denies: chills, diaphoresis, fever EENTM: Denies: ear pain, nose congestion, throat pain Respiratory: Denies: cough, short of breath Cardiology: Denies: chest pain, palpitations Gastrointestinal/Abdominal: States: nausea. Denies: abdominal pain, constipation, diarrhea, vomiting Genitourinary: Denies: dysuria, frequency, hematuria Musculoskeletal: Denies: back pain, joint swelling, neck pain Skin: Denies: change in color, lesions Neurological: States: weakness - GEN. Denies: headache, paresthesia Endocrine: Denies: intolerance to cold, intolerance to heat Hematologic/Lymphatic: Denies: easy bleeding, easy bruising All other Systems: Reviewed and Negative Past Medical History (General) - Patient Medical History Hx Seizures: No Hx Stroke: No Hx Dementia: No Hx Asthma: No Hx of COPD: No Hx Cardiac Disorders: No Hx Congestive Heart Failure: No Hx Pacemaker: No Hx Hypertension: Yes Hx Thyroid Disease: No Hx Diabetes: Yes Hx Gastroesophageal Reflux: No Hx Renal Disease: No Hx Cancer: No Hx of HIV: No Hx Hepatitis C: No Hx MRSA: No Surgical History: cholecystectomy - Vaccination History Hx Tetanus, Diphtheria Vaccination: Yes Hx Influenza Vaccination: No Hx Pneumococcal Vaccination: Yes - Social History Hx Tobacco Use: Yes Hx Chewing Tobacco Use: No Hx Alcohol Use: Yes Hx Substance Use: No Hx Substance Use Treatment: No Hx Depression: No Hx Physical Abuse: No Hx Emotional Abuse: No Hx Suspected Abuse: No - Female History Patient : No Family Medical History - Family History Mother Living Status: Cause of : COPD/Emphysema Hx Cardiac Disease: Yes Hx Family Diabetes: Yes Father Living Status: Cause of : prostate cancer Hx Family Cancer: Yes - Prostate Physical Exam - Physical Exam General Appearance: Obese, Other - FATIGUED BUT ANSWERS QUESTIONS CLEARLY. IS LUCID. Eye Exam: bilateral normal Ears, Nose, Throat: hearing grossly normal, normal ENT inspection, normal pharynx Neck: non-tender, full range of motion, supple, normal inspection Respiratory: no respiratory distress, no accessory muscle use, other - FAINT BL RONCHI AND WHEEZES. THUS I ASKED IF SMOKES. SMOKES 1PPD. 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 IS PRE-CONTEMPLATIVE. 04/16/20 16:54 ORTHOSTATICS TECHNICALLY NEG FOR ORTHOSTATIC HYPOTENSION, BUT ALMOST POS (PULSE INCREASED BY 17 FROM SUPINE TO STANDING). SUPINE 64 120/75 SEATED 79 35/83 STANDING 81 116/87 04/16/20 20:38 DEHYDRATION PER BP 100/62, ELEV BUN, UA KETONES, MILDLY ELEV CK AND CKMB (TROP NEG). GAVE 1LNS BOLUS. CMP GLUCOSE 219 - HAS DM. OTHER DIAGNOSTICS UNREMARKABLE TO EXPLAIN PT'S FATIGUE AND SX: CBC, CXR (MILD ATELECTASIS), EKG (NSR), TSH. ORTHOSTATIC VS NEG. FATIGUE, WEAKNESS, LETHARGY, DECR APPETITIE, NAUSEA, LIGHT-HEADEDNESS - FROM HYPOTENSION, D/T DEHYDRATION. PT IS MORE SUSCEPTIBLE TO HYPOTENSION WHEN HE IS DEHYDRATED SINCE HE IS ON NEEDED ANTIHYPERTENSIVES (LISINOPRIL AND AMLODIPINE). PT LEFT AMA FOR FAMILY EMERGENCY BEFORE I WAS ABLE TO EXPLAIN FINDINGS TO HIM, BUT THE ADVICE I WOULD HAVE GIVEN IS TO INCREASE PO WATER INTAKE TO GREATER THAN 64 OZ PER DAY AND TO F/U W/ PCP RE: BP CHECKS. - EKG/XRAY/CT EKG: Sinus, no ST T wave changes Departure - Departure Clinical Impression: Generalized weakness, Anorexia, Nausea, Light-headedness, Hypovolemia dehydration, Elevated BUN, Ketonuria, Elevated creatine kinase level Fatigue Qualifiers: Fatigue type: other Qualified Code(s): R53.83 - Other fatigue Hypotension Qualifiers: Hypotension type: other hypotension type Qualified Code(s): I95.89 - Other hypotension Disposition: Left Against Medical Advice Departure Forms: ED Discharge - Pt. Copy, Patient Portal Self Enrollment Referrals: Mathieu Mehta MD [Primary Care Provider] - 1-2 Weeks Home Medications: Ambulatory Orders Albuterol Inhaler [Ventolin Hfa Inhaler] 2 puff INH Q6H PRN #1 inh 12/12/16 Amlodipine Besylate 10 mg PO DAILY 12/12/16 HYDROcodone 10MG/APAP 325MG [[place] 10/325] 1 ea PO Q4H PRN 01/10/17 Chlorthalidone 04/16/20 Insulin NPH (Human) (Isophane) [Novolin N] 10 unit SC BEDTIME 04/16/20 Insulin NPH (Human) (Isophane) [Novolin N] 20 unit SC DAILY 04/16/20 Insulin Regular (Human) [Novolin R] 10 unit IJ BEDTIME 04/16/20 Insulin Regular (Human) [Novolin R] 10 unit IJ DAILY 04/16/20 Lisinopril 40 mg PO DAILY 04/16/20 Paroxetine HCl [Paxil] 10 mg PO DAILY 04/16/20 Tramadol HCl 50 mg PO PRN 04/16/20
[2020-04-16] MEDS ORDERED: SODIUM CHLORIDE 0.9% 1000ML 1,000 ML IVS ONE (16:43)
--- NOTE | 2020-04-16 16:51 | RAD ---
EXAM DESCRIPTION: Chest,1 View CLINICAL HISTORY: Weakness, lethargy COMPARISON: Chest radiograph dated May 20, 2019 TECHNIQUE: One view radiograph of the chest FINDINGS: Cardiac silhouette shows normal heart size. Pulmonary vascularity is within normal limits. Subtle linear opacities in the bilateral lung bases most compatible with atelectasis. Otherwise, lungs show no confluent infiltrates. No significant pleural effusion. No pneumothorax. Redemonstrated old healed left rib fractures. IMPRESSION: Subtle linear opacities bilateral lung bases most compatible with atelectasis. Otherwise, lungs show no confluent infiltrates. Electronically signed by: Demarco Doss MD 04/16/2020 4:49 PM CDT
[2020-04-16 18:15] VITALS: BP 121/81; O2SAT 99
== END 2020-04-16 18:30 | disposition left against medical advice (07) ==
LOC: ER 15:27
DX: R53.1 Weakness (principal); E86.0 Dehydration; R63.0 Anorexia; I10 Essential (primary) hypertension; E11.9 Type 2 diabetes mellitus without complications; R42 Dizziness and giddiness; I95.89 Other hypotension; R82.4 Acetonuria; F17.200 Nicotine dependence, unspecified, uncomplicated
CPT/HCPCS: 36415; 71045; 80053; 81001; 82550; 82553; 84443; 84484; 85025; 93005; J7030

== ENCOUNTER 2020-10-19 02:42 | Emergency (ER) | payer SELFPAY ==
--- NOTE | 2020-10-19 02:48 | ED.PDOC ---
History of Present Illness - General Time Seen by Provider: 10/19/20 02:46 Source: patient - History of Present Illness Initial Comments: 59 yo male with PMH of HTN, DM2, COPD who presents with cc of Left knee pain. Reports onset a few days ago when he went to kneel down on the left knee while outside wearing pants and he felt a sudden sharp pain to the front of the knee. He did not pay much attention to it at the time and reported very little pain then. However he reports the pain has rapidly worsened in the past day and further worsened this evening/morning. He reports a focal callused area to the front of the knee which is now slightly warm and tender. He thought it may be an abscess so he tried to pop it with a lancet needle at home without any drainage. He also reports moderate swelling involving the lower leg which is also new. Reports the pain at rest is only 3/10 severity but with any weightbearing and walking becomes 10/10 severity. The pain does not radiate into the knee joint and does not worsen with any range of motion of the left knee joint. Located throughout the entire lower leg from the anterior/inferior knee down to the ankle. Reports it feels like a significant amount of pressure. Reports also some warmth in the lower leg but denies any redness. He does report new onset of fever today with T-max 101 Fahrenheit at home. He took 2 tablets of hydrocodone and ibuprofen 400 mg p.o. at home with little relief. Additionally reports ongoing occas productive cough for the past month, intermittent headaches, nausea. Reports chronic dyspnea from COPD/smoking but unchanged from usual. Denies any sore throat, chest pain, abd pain, vomiting/diarrhea. Allergies/Adverse Reactions: Allergies Erythromycin Allergy (Verified 05/20/19 19:48) Hives Home Medications: Ambulatory Orders Albuterol Inhaler [Ventolin Hfa Inhaler] 2 puff INH Q6H PRN #1 inh 12/12/16 Amlodipine Besylate 10 mg PO DAILY 12/12/16 HYDROcodone 10MG/APAP 325MG [[place] 10/325] 1 ea PO Q4H PRN 01/10/17 Chlorthalidone 04/16/20 Insulin NPH (Human) (Isophane) [Novolin N] 10 unit SC BEDTIME 04/16/20 Insulin NPH (Human) (Isophane) [Novolin N] 20 unit SC DAILY 04/16/20 Insulin Regular (Human) [Novolin R] 10 unit IJ BEDTIME 04/16/20 Insulin Regular (Human) [Novolin R] 10 unit IJ DAILY 04/16/20 Lisinopril 40 mg PO DAILY 04/16/20 Paroxetine HCl [Paxil] 10 mg PO DAILY 04/16/20 Tramadol HCl 50 mg PO PRN 04/16/20 Acetaminophen W/ Codeine [Tylenol W/ CODEINE #3] 1 ea PO Q6H PRN 5 Days #12 ea 10/19/20 Clindamycin HCl [Cleocin] 300 mg PO Q6H 7 Days #28 capsule 10/19/20 Review of Systems - Review of Systems Review of Systems: 10/19/20 02:47 as per HPI All other Systems: Reviewed and Negative Past Medical History (General) - Patient Medical History Hx Seizures: No Hx Stroke: No Hx Dementia: No Hx Asthma: No Hx of COPD: No Hx Cardiac Disorders: No Hx Congestive Heart Failure: No Hx Pacemaker: No Hx Hypertension: Yes Hx Thyroid Disease: No Hx Diabetes: Yes Hx Gastroesophageal Reflux: No Hx Renal Disease: No Hx Cancer: No Hx of HIV: No Hx Hepatitis C: No Hx MRSA: No - Vaccination History Hx Tetanus, Diphtheria Vaccination: Yes Hx Influenza Vaccination: No Hx Pneumococcal Vaccination: Yes - Social History Hx Tobacco Use: Yes Hx Chewing Tobacco Use: No Hx Alcohol Use: Yes Hx Substance Use: No Hx Substance Use Treatment: No Hx Depression: No Hx Physical Abuse: No Hx Emotional Abuse: No Hx Suspected Abuse: No - Female History Patient : No Family Medical History - Family History Mother Living Status: Cause of : COPD/Emphysema Hx Cardiac Disease: Yes Hx Family Diabetes: Yes Father Living Status: Cause of : prostate cancer Hx Family Cancer: Yes - Prostate Physical Exam - Physical Exam General Appearance: Alert, No apparent distress Eye Exam: bilateral normal Ears, Nose, Throat: normal ENT inspection, normal pharynx Neck: full range of motion, supple, normal inspection Respiratory: lungs clear, normal breath sounds, no respiratory distress, no accessory muscle use Cardiovascular/Chest: normal peripheral pulses, no gallop, no JVD, no murmur, tachycardia Peripheral Pulses: radial,right: 2+, radial,left: 2+ Gastrointestinal/Abdominal: non tender, soft, no organomegaly Back Exam: normal inspection, no CVA tenderness, no vertebral tenderness Extremity: normal range of motion, no calf tenderness, normal capillary refill, pedal edema - 2+ pitting edema to LLE from inferior knee down to the foot, other - approx 3x3 cm circular area of induration to anteroinferior aspect of left knee which appears fluctuant & warm, moderately ttp Neurologic: 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 Consider also DVT LLE, COVID-19, PNA, other -pt with tachycardia on arrival and reports fevers at home with possible source LLE -obtain stat septic work-up, bloodwork, rapid COVID, XR imaging L knee -place PIV, 1 L NS bolus, morphine 4 mg IV for pain, Zofran 4 mg IV -will attempt bedside I&D of Left knee area of induration/fluctuance and try to collect cultures -Tetanus imm booster if needed 10/19/20 04:53 -XR L knee shows no acute bony processes per my read -Labs reassuring - WBC 11,100 with 76% segs and no bands, lactate 1.5. Serum glucose elevated to 345. Labs otherwise pretty unremarkable. -I peformed a bedside sono of the Left inferior knee callus, which reveals no focal evidence of fluid collection/abscess. Thus no I&D attempted. Discussed all findings with pt & his . I am concerned for likely early cellulitis of the LLE. It is reassuring that: he is without fever in the ED & vitals are normal, WBC count is wnl w/o left shift or lactic acidosis, no redness/erythema on exam, focal area of tenderness is just under the callus formation. The patient would like to try and manage initially as outpt and I feel this is dharmesh sonable. Will give a dose of Rocephin 1 g IV in the ED and plan to send home on clindamycin 300 mg PO QID x7 days. Advised he will need to work on strictly controlling his blood glucose level at home and quit smoking as well in order to successfully treat the infection. Pt verbalizes understanding. -dc to home in good condition, return warnings discussed at length with pt & Darek Huerta MD Billing #[id number] 10/19/20 02:59 IV Care:Saline Lock per Protoc QSHIFT Telemetry .ONCE Sodium Chloride 0.9% (Flush) [Saline Flush Syringe] 10 ml IV PRN PRN 10/19/20 03:10 BLOOD CULTURE Stat 10/19/20 04:52 cefTRIAXone SODIUM [Rocephin] 1 gm Sodium Chl 0.9% 50Ml Min-Bag+ [NS 50ml MINI-BAG+] 50 ml IVPB ONCE 10/19/20 04:53 GLUCOSE, FINGER STICK Stat Laboratory Results - last 24 hr 10/19/20 10/19/20 10/19/20 03:10 03:10 03:10 WBC 11.1 H RBC 5.01 Hgb 14.4 Hct 41.4 L MCV 82.6 MCH 28.7 MCHC 34.8 RDW 13.6 Plt Count 176 MPV 8.5 Absolute Neuts (auto) 8.40 H Absolute Lymphs (auto) 1.30 Absolute Monos (auto) 1.00 H Absolute Eos (auto) 0.30 Absolute Basos (auto) 0.10 Neutrophils % 76.2 Lymphocytes % 12.2 L Monocytes % 8.7 Eosinophils % 2.4 Basophils % 0.5 D-Dimer, Quantitative < 131.0 L Sodium 134 L Potassium 4.0 Chloride 96 L Carbon Dioxide 28 Anion Gap 14.0 BUN 16 Creatinine 0.75 BUN/Creatinine Ratio 21.3 H Random Glucose 345 H Serum Osmolality 283.1 Lactic Acid Calcium 8.8 Total Bilirubin 0.6 AST 19 ALT 24 Alkaline Phosphatase 56 Serum Total Protein 6.8 Albumin 4.3 Globulin 2.5 Albumin/Globulin Ratio 1.7 10/19/20 03:10 WBC RBC Hgb Hct MCV MCH MCHC RDW Plt Count MPV Absolute Neuts (auto) Absolute Lymphs (auto) Absolute Monos (auto) Absolute Eos (auto) Absolute Basos (auto) Neutrophils % Lymphocytes % Monocytes % Eosinophils % Basophils % D-Dimer, Quantitative Sodium Potassium Chloride Carbon Dioxide Anion Gap BUN Creatinine BUN/Creatinine Ratio Random Glucose Serum Osmolality Lactic Acid 1.5 Calcium Total Bilirubin AST ALT Alkaline Phosphatase Serum Total Protein Albumin Globulin Albumin/Globulin Ratio Departure - Departure Clinical Impression: Cellulitis Qualifiers: Site of cellulitis: extremity Site of cellulitis of extremity: lower extremity Laterality: left Qualified Code(s): L03.116 - Cellulitis of left lower limb Time of Disposition: 05:02 Disposition: Discharge to Home or Self Care Condition: Good Instructions: Cellulitis (Skin Infection), Adult (DC) Diet: resume usual diet Activity: increase activity as tolerated Referrals: Mathieu Mehta MD [Primary Care Provider] - 1-2 Weeks Prescriptions: Clindamycin HCl [Cleocin] 300 mg PO Q6H 7 Days #28 capsule Acetaminophen W/ Codeine [Tylenol W/ CODEINE #3] 1 ea PO Q6H PRN 5 Days #12 ea PRN Reason: Pain Home Medications: Ambulatory Orders Albuterol Inhaler [Ventolin Hfa Inhaler] 2 puff INH Q6H PRN #1 inh 12/12/16 Amlodipine Besylate 10 mg PO DAILY 12/12/16 HYDROcodone 10MG/APAP 325MG [[place] 10/325] 1 ea PO Q4H PRN 01/10/17 Chlorthalidone 04/16/20 Insulin NPH (Human) (Isophane) [Novolin N] 10 unit SC BEDTIME 04/16/20 Insulin NPH (Human) (Isophane) [Novolin N] 20 unit SC DAILY 04/16/20 Insulin Regular (Human) [Novolin R] 10 unit IJ BEDTIME 04/16/20 Insulin Regular (Human) [Novolin R] 10 unit IJ DAILY 04/16/20 Lisinopril 40 mg PO DAILY 04/16/20 Paroxetine HCl [Paxil] 10 mg PO DAILY 04/16/20 Tramadol HCl 50 mg PO PRN 04/16/20 Acetaminophen W/ Codeine [Tylenol W/ CODEINE #3] 1 ea PO Q6H PRN 5 Days #12 ea 10/19/20 Clindamycin HCl [Cleocin] 300 mg PO Q6H 7 Days #28 capsule 10/19/20 Additional Instructions: Remain well-hydrated and adhere to a diabetic diet as discussed. Refrain from smoking as well which will increase your risk of worsening infection. Take the antibiotics as directed and finish the full course even if well. Continue taking [id number] medications for pain and inflammation such as Tylenol 650 mg every 6 hours as needed and ibuprofen 600 mg every 6 hours as needed. You may take the Tylenol 3 as directed for breakthrough pain. Do not drive or operate heavy machinery while taking. Return to the ED if you develop worsening of symptoms despite the antibiotic therapy or if you have persistent fevers, worsening of pain/redness/swelling, or develop other concerning symptoms such as worsening shortness of breath, chest pain, large-volume diarrhea, etc. Follow- up with your primary care physician is recommended in the next 5 to 7 days for repeat evaluation or sooner as needed.
[2020-10-19] MEDS ORDERED: SODIUM CHLORIDE 0.9% (FLUSH) 10 ML SYG IV PRN (02:59)
[2020-10-19] MEDS ORDERED: ONDANSETRON INJ 4 MG/2 ML VIAL IV ONE (03:00)
[2020-10-19] MEDS ORDERED: MORPHINE SULFATE INJ 10 MG/ML VIAL IV ONE (03:00)
[2020-10-19] MEDS ORDERED: SODIUM CHLORIDE 0.9% 1000ML 1,000 ML IVS ONE (03:00)
--- NOTE | 2020-10-19 03:32 | RAD ---
EXAM: XR Left Knee, 3 Views CLINICAL HISTORY: The patient is 59 years old and is Male; acute nontraumatic L knee pain and ant swelling TECHNIQUE: Three views of the left knee. COMPARISON: No relevant prior studies available. FINDINGS: Bones/joints: Suggestion of a small suprapatellar joint effusion. Medial compartment subchondral sclerosis. There are superior and inferior patellar osteophytes. No acute fracture. No dislocation. Soft tissues: Unremarkable. IMPRESSION: 1. No acute fracture or dislocation. 2. Suggestion of a small suprapatellar joint effusion. 3. Medial compartment subchondral sclerosis. 4. There are superior and inferior patellar osteophytes. Electronically signed by: Jay Colunga MD 10/19/2020 3:31 AM [facility]
[2020-10-19 03:59] VITALS: O2SAT 94
[2020-10-19] MEDS ORDERED: INSULIN, REG.(HUMAN) 100 U/ML VIAL IV ONE (04:52)
[2020-10-19] MEDS ORDERED: cefTRIAXone SODIUM 1 GM in SODIUM CHL 0.9% 50ML MIN-BAG+ 50 ML IVPB ONE (04:52)
[2020-10-19 05:50] VITALS: BP 104/66; TEMP 98.3
== END 2020-10-19 05:45 | disposition home or self-care (01) ==
LOC: ER 02:42
DX: L03.116 Cellulitis of left lower limb (principal); R00.0 Tachycardia, unspecified; R05 Cough; R51.9 Headache, unspecified; R11.0 Nausea; J44.9 Chronic obstructive pulmonary disease, unspecified; F17.200 Nicotine dependence, unspecified, uncomplicated; E11.9 Type 2 diabetes mellitus without complications; I10 Essential (primary) hypertension; Z20.828 Contact with and (suspected) exposure to other viral communicable diseases; Z79.4 Long term (current) use of insulin; Z79.899 Other long term (current) drug therapy
CPT/HCPCS: 73562; 80053; 82948; 83605; 85025; 85379; 87040; A4216; J0696; J2270; J2405; J7030; J7050